=== PATIENT | female | born 1930 | race Caucasian/White ===

== ENCOUNTER → 2017-03-02 | Outpatient (CLI) | payer OTHER ==
[~2017-03-02] MED LIST: AMIO200T PO; ASPI81TA28 PO; CALCIUM + D600 M1 PO; LISI5TAB3 PO; ONDA4TAB7 SL; POLY335025 PO
--- NOTE | 2017-03-02 13:56 | MAMMOGRAPHY REPORT ---
BILATERAL DIGITAL SCREENING MAMMOGRAM WITH CAD: 03/02/2017 CLINICAL HISTORY: Routine screening. Patient has no complaints. TECHNIQUE: Current study was also evaluated with a Computer Aided Detection (CAD) system. Bilateral CC and MLO views were obtained. COMPARISON: Comparison is made to exams dated: 10/19/2015 mammogram, 10/07/2014 mammogram, 09/09/2013 ma mmogram, 09/06/2012 mammogram, 09/14/2011 mammogram, and 09/05/2011 mammogram - [facility]. BREAST COMPOSITION: There are scattered areas of fibroglandular density in both breasts. FINDINGS: No suspicious masses, calcifications, or areas of architectural distortion are noted in ei ther breast. There has been no significant interval change compared to prior exams. IMPRESSION: ACR BI-RADS CATEGORY 1: NEGATIVE There is no mammographic evidence of malignancy. A 1 year screening mammogram is recommended. The pa tient will receive written notification of the results. Approximately 10% of breast cancers are not detected with mammography. A negative mammographic report should not delay biopsy if a clinically suggestive mass is present. Za Arzate M.D. /:03/02/2017 10:32:40 Computing Tutor: Geno CARREON(Hellen)(Ivan)(BD), [facility] letter sent: Normal 1/2 BI-RADS Code: ACR BI-RADS Category 1: Negative
== END | disposition home or self-care (01) ==
LOC: C.MAMM 08:55
PROVIDERS: ATTEND Internal Medicine Critical Care Medicine
DX: Z12.31 Encounter for screening mammogram for malignant neoplasm of breast (principal)

== ENCOUNTER → 2017-07-13 | Outpatient (CLI) | payer OTHER ==
[2017-07-13 10:31] LABS: BLOOD UREA NITROGEN 13 mg/dl (7-18); CALCIUM 8.9 mg/dl (8.5-10.1); CARBON DIOXIDE 30 mmol/L (21-32); CREATININE 0.71 mg/dl (0.60-1.20); GLUCOSE 88 mg/dl (70-99); POTASSIUM 3.9 mmol/L (3.5-5.1); SODIUM 128 mmol/L (136-145)
== END ==
LOC: C.LABVPSUA 09:01
PROVIDERS: ATTEND Internal Medicine Critical Care Medicine
DX: E87.1 Hypo-osmolality and hyponatremia (principal)

== ENCOUNTER → 2017-07-17 | Outpatient (CLI) | payer OTHER ==
[2017-07-17 09:30] LABS: BLOOD UREA NITROGEN 11 mg/dl (7-18); CALCIUM 8.6 mg/dl (8.5-10.1); CARBON DIOXIDE 31 mmol/L (21-32); CREATININE 0.66 mg/dl (0.60-1.20); GLUCOSE 92 mg/dl (70-99); POTASSIUM 4.1 mmol/L (3.5-5.1); SODIUM 127 mmol/L (136-145)
== END ==
LOC: C.LABVPSUA 08:29
PROVIDERS: ATTEND Internal Medicine Critical Care Medicine
DX: E87.1 Hypo-osmolality and hyponatremia (principal)

== ENCOUNTER → 2017-07-21 | Outpatient (CLI) | payer OTHER ==
[2017-07-21 09:40] LABS: BLOOD UREA NITROGEN 12 mg/dl (7-18); CALCIUM 8.8 mg/dl (8.5-10.1); CARBON DIOXIDE 29 mmol/L (21-32); CREATININE 0.71 mg/dl (0.60-1.20); GLUCOSE 113 mg/dl (70-99); SODIUM 129 mmol/L (136-145)
== END ==
LOC: C.LABVPSUA 08:30
PROVIDERS: ATTEND Internal Medicine Critical Care Medicine
DX: N18.3 Chronic kidney disease, stage 3 (moderate) (principal)

== ENCOUNTER → 2017-07-24 | Outpatient (CLI) | payer OTHER ==
[2017-07-24 09:43] LABS: BLOOD UREA NITROGEN 12 mg/dl (7-18); CALCIUM 8.7 mg/dl (8.5-10.1); CARBON DIOXIDE 29 mmol/L (21-32); CREATININE 0.59 mg/dl (0.60-1.20); GLUCOSE 85 mg/dl (70-99); POTASSIUM 4.1 mmol/L (3.5-5.1); SODIUM 131 mmol/L (136-145)
== END | disposition home or self-care (01) ==
LOC: C.LABVPSUA 08:52
PROVIDERS: ATTEND Internal Medicine Critical Care Medicine
DX: E87.0 Hyperosmolality and hypernatremia (principal)

== ENCOUNTER → 2017-08-01 | Outpatient (CLI) | payer OTHER ==
[2017-08-01 09:48] LABS: BASO % 0.5 %; BASO ABS # 0.04 K/uL (0-0.2); EOS ABS # 0.25 K/uL (0-0.5); HEMATOCRIT 34.2 % (37-47); HEMOGLOBIN 11.6 g/dL (12.0-16.0); IG# 0.03 K/uL (0.00-0.02); LYMPH ABS # 1.84 K/uL (1.2-3.4); MEAN CELL VOLUME 88.6 fL (80-100); MEAN CORPUSCULAR HEMOGLOBIN 30.1 pg (25-34); MEAN CORPUSCULAR HGB CONC 33.9 g/dl (32-36); MONO ABS # 0.84 K/uL (0.11-0.59); NEUT % 64.1 %; NEUT ABS # 5.36 K/uL (1.4-6.5); PLATELET COUNT 334 K/uL (130-400); RED CELL DISTRIBUTION WIDTH CV 14.8 % (11.5-14.5); RED CELL DISTRIBUTION WIDTH SD 47.7 fL (36.4-46.3); WHITE BLOOD COUNT 8.36 K/uL (4.8-10.8)
[2017-08-01 10:05] LABS: BLOOD UREA NITROGEN 14 mg/dl (7-18); CALCIUM 8.7 mg/dl (8.5-10.1); CARBON DIOXIDE 30 mmol/L (21-32); CREATININE 0.76 mg/dl (0.60-1.20); GLUCOSE 96 mg/dl (70-99); POTASSIUM 3.2 mmol/L (3.5-5.1); SODIUM 133 mmol/L (136-145)
== END | disposition home or self-care (01) ==
LOC: C.LABVPSUA 09:09
PROVIDERS: ATTEND Internal Medicine Critical Care Medicine
DX: E87.1 Hypo-osmolality and hyponatremia (principal); R11.2 Nausea with vomiting, unspecified

== ENCOUNTER 2017-08-21 15:33 | Emergency (ER) | payer OTHER ==
[~2017-08-21] VITALS: Ht 162.6 cm; Wt 59.7 kg
[2017-08-21 15:40] VITALS: TEMP 36.4; Ht 162.6 cm; Wt 59.7 kg
[2017-08-21 16:21] LABS: BASO ABS # 0.09 K/uL (0-0.2); EOS % 2.8 %; EOS ABS # 0.25 K/uL (0-0.5); HEMATOCRIT 35.2 % (37-47); HEMOGLOBIN 12.1 g/dL (12.0-16.0); IG# 0.03 K/uL (0.00-0.02); LYMPH % 25.5 %; LYMPH ABS # 2.31 K/uL (1.2-3.4); MEAN CELL VOLUME 86.3 fL (80-100); MEAN CORPUSCULAR HEMOGLOBIN 29.7 pg (25-34); MEAN CORPUSCULAR HGB CONC 34.4 g/dl (32-36); MEAN PLATELET VOLUME 8.6 fL (7.4-10.4); MONO % 12.6 %; MONO ABS # 1.14 K/uL (0.11-0.59); NEUT % 57.8 %; NEUT ABS # 5.25 K/uL (1.4-6.5); PLATELET COUNT 335 K/uL (130-400); RED CELL DISTRIBUTION WIDTH CV 14.9 % (11.5-14.5); RED CELL DISTRIBUTION WIDTH SD 46.9 fL (36.4-46.3); WHITE BLOOD COUNT 9.07 K/uL (4.8-10.8)
[2017-08-21] MEDS ORDERED: AMLO2.5T PO (16:30)
[2017-08-21] MEDS ORDERED: LEVO25TA5 PO (16:30)
[2017-08-21] MEDS ORDERED: SODI1GRA11 PO (16:30)
[2017-08-21] MEDS ORDERED: FURO-85 PO (16:30)
[2017-08-21] MEDS ORDERED: AMIO200T4 PO (16:30)
[2017-08-21] MEDS ORDERED: ULT50 PO (16:30)
[2017-08-21] MEDS ORDERED: POTA10CA28 PO (16:30)
[2017-08-21] MEDS ORDERED: LSN20 PO (16:30)
[2017-08-21 16:37] LABS: ALBUMIN 3.1 gm/dl (3.4-5.0); CALCIUM 8.8 mg/dl (8.5-10.1); CREATININE 1.04 mg/dl (0.60-1.20); POTASSIUM 4.2 mmol/L (3.5-5.1)
[2017-08-21 16:40] LABS: TOTAL PROTEIN 7.4 gm/dl (6.4-8.2)
--- NOTE | 2017-08-21 17:24 | DIAGNOSTIC IMAGING REPORT ---
PELVIS 1 OR 2 VIEW ROUTINE CLINICAL HISTORY: R leg pain pain. Trauma. COMPARISON: 09/05/2009 DISCUSSION: Comminuted fracture medial aspect left pubic ring. Fracture medial aspect right pubic ring. No additional well-defined acute bony abnormality on this single projection. There is no evidence for soft tissue swelling. IMPRESSION: 1. Comminuted fracture medial left pubic ring. 2. Fracture right pubic ring medially. The above report was generated using voice recognition software. It may contain grammatical, syntax or spelling errors. Electronically signed by: Kit Ryder M.D. 08/21/2017 5:22 PM Dictated Date/Time: 08/21/2017 5:21 PM
--- NOTE | 2017-08-21 17:26 | DIAGNOSTIC IMAGING REPORT ---
R FEMUR 2 VIEWS ROUTINE CLINICAL HISTORY: r leg pain COMPARISON: None. DISCUSSION: The bones and joint spaces appear intact. There is no evidence of fracture, dislocation or bony disease. Slight cortical step-off lateral aspect AP projection right hip overlying the right anterior acetabular line. This felt to be artifactual. IMPRESSION: No acute process. The above report was generated using voice recognition software. It may contain grammatical, syntax or spelling errors. Electronically signed by: Kit Ryder M.D. 08/21/2017 5:24 PM Dictated Date/Time: 08/21/2017 5:22 PM
[2017-08-21] MEDS ORDERED: OPTIRAY 320 IV PRN (18:45)
--- NOTE | 2017-08-21 20:01 | DIAGNOSTIC IMAGING REPORT ---
PELVIS W/IV CONT ONLY (CT) HISTORY: 87 years-old Female presents with acute generalized pelvic pain COMPARISON: CT abdomen and pelvis 11/20/2012, pelvic radiographs 08/21/2017 TECHNIQUE: Multiple axial CT images of the pelvis were obtained following the intravenous administration of 116 mL Optiray 320 IV contrast. A dose lowering technique was used consistent with the principals of HOSSEIN. FINDINGS: Moderate atherosclerosis of the distal abdominal aorta and iliac vasculature. No pathologic adenopathy by CT size criteria. IVC appears patent. Moderate stool volume is seen throughout the colon suggesting constipation. No dilated small bowel loops identified. No pneumoperitoneum or pneumatosis. Air-filled nondilated loops of small bowel likely physiologic. Mild urinary bladder distention. Uterus appears age-appropriate. No adnexal mass lesions identified. The bones appear to be moderately demineralized. Healing subacute appearing comminuted mildly impacted fracture of the superior left pubic ramus with mild surrounding soft tissue swelling and healing periosteal callus formation is noted on image 178 series 3. Healing subacute displaced fracture involves the inferior left pubic ramus with apposition of fracture fragments of 12 mm. Fracture displaced anterolaterally 12 mm. Acute nondisplaced fracture involves the right superior pubic ramus as well. Subacute appearing nondisplaced fracture of the posterior left iliac wing adjacent to the SI joint is nicely seen on image 43 series 3. Subacute appearing bilateral sacral insufficiency fractures. Bilateral proximal femora appear intact. Moderate degenerative changes of the bilateral femoral acetabular joints. Moderate edema of the bilateral abductor musculature. IMPRESSION: 1. Multiple bilateral subacute appearing pelvic fractures including comminuted displaced left superior pubic ramus fracture and subacute displaced inferior left pubic ramus fracture. Acute to subacute appearing nondisplaced fractures of the right superior and inferior pubic rami. 2. Subacute appearing nondisplaced bilateral sacral insufficiency and left posterior iliac fractures. 3. Bilateral proximal femora appear intact. 4. Reactive soft tissue swelling of the abductor musculature. The above report was generated using voice recognition software. It may contain grammatical, syntax or spelling errors. Electronically signed by: Kaleb Grider M.D. 08/21/2017 8:00 PM Dictated Date/Time: 08/21/2017 7:48 PM
[2017-08-21] MEDS ORDERED: OXYCODONE IR HOME PACK PO ONE (21:00)
[2017-08-21 21:12] VITALS: BP 138/41; PULSE 61; O2SAT 95
--- NOTE | 2017-08-21 22:26 | EMERGENCY ROOM VISIT NOTE ---
History Report prepared by Lois: Tian Ocasio Under the Supervision of: Dr. Satish Sutton D.O. First contact with patient: 15:47 Chief Complaint: LEG PAIN,LEG INJURY Stated Complaint: LEG PAIN History of Present Illness The patient is an 87 year old female who presents to the Emergency Room with complaints of worsening sharp right leg pain for the past week and a half. Per the patient's daughter, the patient broke her left pelvis in June, and she has been doing well in rehab since then until now. The patient was seen at the orthopedist, and they could not find anything on x-ray, and they sent her to pain management. She got a steroid shot in her SI joint, and it did not help the pain. The patient notes that the pain is worse with movement and walking on it. The patient state that the pain started in the back, though it moved into the leg, and she has no more back pain. She is currently taking tramadol for the pain, and it does not really help. Pt denies difficulty urinating and with bowel movements, headache, change in vision, fevers, chest pain, shortness of breath, nausea, vomiting, diarrhea, pain with urination, and melena. Source of History: patient Onset: week and a half Position: leg (right) Quality: sharp Timing: worsening Associated Symptoms: No back pain Review of Systems See HPI for pertinent positives & negatives. A total of 10 systems reviewed and were otherwise negative. Past Medical & Surgical Medical Problems: (1) HTN (hypertension) Social History Smoking Status: Never Smoker Alcohol Use: none Drug Use: none Marital Status: Housing Status: lives with family Occupation Status: retired Current/Historical Medications Scheduled Amiodarone Hcl (Cordarone), 200 MG PO DAILY Amlodipine (Norvasc), 2.5 MG PO DAILY Furosemide (Lasix), 20 MG PO DAILY Levothyroxine Sodium (Levothyroxine Sodium), 25 MCG PO DAILY Lisinopril (Lisinopril), 20 MG PO DAILY Potassium Chloride (Micro-K Ext Rel), 10 MEQ PO DAILY Sodium Chloride (Sodium Chloride), 1 GM PO BID Scheduled PRN Tramadol HCl (Tramadol HCl), 50 MG PO Q6 PRN for Pain Allergies Coded Allergies: No Known Allergies (Verified , 08/21/17) Physical Exam Vital Signs Date Time Temp Pulse Resp B/P (MAP) Pulse Ox O2 Delivery O2 Flow Rate FiO2 08/21/17 21:12 61 138/41 95 08/21/17 19:59 58 131/58 96 Room Air 08/21/17 18:06 56 129/58 95 Room Air 08/21/17 15:40 36.4 77 175/87 96 Room Air Physical Exam GENERAL: Sitting up in bed, chronically ill appearing, malnourished. EYE EXAM: normal conjunctiva. OROPHARYNX: no exudate, no erythema, lips, buccal mucosa, and tongue normal and mucous membranes are moist NECK: supple, no nuchal rigidity, no adenopathy, non-tender LUNGS: Clear to auscultation. Normal chest wall mechanics HEART: no murmurs, S1 normal and S2 normal ABDOMEN: abdomen soft, non-tender, normo-active bowel sounds, no masses, no rebound or guarding. BACK: Back is symmetrical on inspection and there is no deformity, no midline tenderness, no CVA tenderness. SKIN: no rashes and no bruising UPPER EXTREMITIES: upper extremities are grossly normal. LOWER EXTREMITIES: 2 areas of erythema in the right groin. Tenderness to palpation to the right proximal femur/pelvis tracking distally along the medial portion. Flexion extension of the hip, knee, ankle, and EHL are 5/5 bilaterally with significant pain with movement of hip in the right. NEURO EXAM: Normal sensorium, cranial nerves II-XII grossly intact, normal speech, no gross weakness of arms, no gross weakness of legs. Medical Decision & Procedures ER Provider Diagnostic Interpretation: Radiology results as stated below per my review and the radiologist's interpretation: PELVIS 1 OR 2 VIEW ROUTINE CLINICAL HISTORY: R leg pain pain. Trauma. COMPARISON: 09/05/2009 DISCUSSION: Comminuted fracture medial aspect left pubic ring. Fracture medial aspect right pubic ring. No additional well-defined acute bony abnormality on this single projection. There is no evidence for soft tissue swelling. IMPRESSION: 1. Comminuted fracture medial left pubic ring. 2. Fracture right pubic ring medially. The above report was generated using voice recognition software. It may contain grammatical, syntax or spelling errors. Electronically signed by: Kit Ryder M.D. 08/21/2017 5:22 PM Dictated Date/Time: 08/21/2017 5:21 PM R FEMUR 2 VIEWS ROUTINE CLINICAL HISTORY: r leg pain COMPARISON: None. DISCUSSION: The bones and joint spaces appear intact. There is no evidence of fracture, dislocation or bony disease. Slight cortical step-off lateral aspect AP projection right hip overlying the right anterior acetabular line. This felt to be artifactual. IMPRESSION: No acute process. The above report was generated using voice recognition software. It may contain grammatical, syntax or spelling errors. Electronically signed by: Kit Ryder M.D. 08/21/2017 5:24 PM Dictated Date/Time: 08/21/2017 5:22 PM PELVIS W/IV CONT ONLY (CT) HISTORY: 87 years-old Female presents with acute generalized pelvic pain COMPARISON: CT abdomen and pelvis 11/20/2012, pelvic radiographs 08/21/2017 TECHNIQUE: Multiple axial CT images of the pelvis were obtained following the intravenous administration of 116 mL Optiray 320 IV contrast. A dose lowering technique was used consistent with the principals of HOSSEIN. FINDINGS: Moderate atherosclerosis of the distal abdominal aorta and iliac vasculature. No pathologic adenopathy by CT size criteria. IVC appears patent. Moderate stool volume is seen throughout the colon suggesting constipation. No dilated small bowel loops identified. No pneumoperitoneum or pneumatosis. Air-filled nondilated loops of small bowel likely physiologic. Mild urinary bladder distention. Uterus appears age-appropriate. No adnexal mass lesions identified. The bones appear to be moderately demineralized. Healing subacute appearing comminuted mildly impacted fracture of the superior left pubic ramus with mild surrounding soft tissue swelling and healing periosteal callus formation is noted on image 178 series 3. Healing subacute displaced fracture involves the inferior left pubic ramus with apposition of fracture fragments of 12 mm. Fracture displaced anterolaterally 12 mm. Acute nondisplaced fracture involves the right superior pubic ramus as well. Subacute appearing nondisplaced fracture of the posterior left iliac wing adjacent to the SI joint is nicely seen on image 43 series 3. Subacute appearing bilateral sacral insufficiency fractures. Bilateral proximal femora appear intact. Moderate degenerative changes of the bilateral femoral acetabular joints. Moderate edema of the bilateral abductor musculature. IMPRESSION: 1. Multiple bilateral subacute appearing pelvic fractures including comminuted displaced left superior pubic ramus fracture and subacute displaced inferior left pubic ramus fracture. Acute to subacute appearing nondisplaced fractures of the right superior and inferior pubic rami. 2. Subacute appearing nondisplaced bilateral sacral insufficiency and left posterior iliac fractures. 3. Bilateral proximal femora appear intact. 4. Reactive soft tissue swelling of the abductor musculature. The above report was generated using voice recognition software. It may contain grammatical, syntax or spelling errors. Electronically signed by: Kaleb Grider M.D. 08/21/2017 8:00 PM Dictated Date/Time: 08/21/2017 7:48 PM Laboratory Results 08/21/17 16:15 Red Blood Count 4.08, Mean Corpuscular Volume 86.3, Mean Corpuscular Hemoglobin 29.7, Mean Corpuscular Hemoglobin Concent 34.4, Mean Platelet Volume 8.6, Neutrophils (%) (Auto) 57.8, Lymphocytes (%) (Auto) 25.5, Monocytes (%) (Auto) 12.6, Eosinophils (%) (Auto) 2.8, Basophils (%) (Auto) 1.0, Neutrophils # (Auto ) 5.25, Lymphocytes # (Auto) 2.31, Monocytes # (Auto) 1.14, Eosinophils # (Auto ) 0.25, Basophils # (Auto) 0.09 08/21/17 16:15 Test 08/21/17 16:15 White Blood Count 9.07 K/uL (4.8-10.8) Red Blood Count 4.08 M/uL (4.2-5.4) Hemoglobin 12.1 g/dL (12.0-16.0) Hematocrit 35.2 % (37-47) Mean Corpuscular Volume 86.3 fL (80-100) Mean Corpuscular Hemoglobin 29.7 pg (25-34) Mean Corpuscular Hemoglobin Concent 34.4 g/dl (32-36) Platelet Count 335 K/uL (130-400) Mean Platelet Volume 8.6 fL (7.4-10.4) Neutrophils (%) (Auto) 57.8 % Lymphocytes (%) (Auto) 25.5 % Monocytes (%) (Auto) 12.6 % Eosinophils (%) (Auto) 2.8 % Basophils (%) (Auto) 1.0 % Neutrophils # (Auto) 5.25 K/uL (1.4-6.5) Lymphocytes # (Auto) 2.31 K/uL (1.2-3.4) Monocytes # (Auto) 1.14 K/uL (0.11-0.59) Eosinophils # (Auto) 0.25 K/uL (0-0.5) Basophils # (Auto) 0.09 K/uL (0-0.2) RDW Standard Deviation 46.9 fL (36.4-46.3) RDW Coefficient of Variation 14.9 % (11.5-14.5) Immature Granulocyte % (Auto) 0.3 % Immature Granulocyte # (Auto) 0.03 K/uL (0.00-0.02) Anion Gap 7.0 mmol/L (3-11) Est Creatinine Clear Calc Drug Dose 32.9 ml/min Estimated GFR () 55.9 Estimated GFR (Non- 48.3 BUN/Creatinine Ratio 17.6 (10-20) Calcium Level 8.8 mg/dl (8.5-10.1) Total Bilirubin 0.4 mg/dl (0.2-1) Direct Bilirubin 0.2 mg/dl (0-0.2) Aspartate Amino Transf (AST/SGOT) 17 U/L (15-37) Alanine Aminotransferase (ALT/SGPT) 16 U/L (12-78) Alkaline Phosphatase 150 U/L (45-117) Total Protein 7.4 gm/dl (6.4-8.2) Albumin 3.1 gm/dl (3.4-5.0) Lipase 147 U/L (73-393) Laboratory results per my review. Medications Administered Medications (Trade) Dose Ordered Sig/Jeramy Route Start Time Stop Time Status Last Admin Dose Admin Oxycodone HCl (Roxicodone Immediate Rel 5MG Home Pack) 1 homepack UD ONCE PO 08/21/17 21:00 08/21/17 21:01 DC 08/21/17 21:01 1 HOMEPACK ED Course ED COURSE: Vital signs were reviewed and showed situational hypertension The patients medical record was reviewed The above diagnostic studies were performed and reviewed. ED treatments and interventions as stated above. 1547: The patient was evaluated in room A11. A complete history and physical examination was performed. 1655: I reevaluated the patient, and she was doing well. 1833: I discussed the patient's case with Dr. Callejas - Orthopedics, and he is going review the patient's old imaging. 1840: I reevaluated the patient, and I updated her on the plan. She will be getting a CT scan. 1851: Dr. Callejas called back and is unable to differentiate old and new based off the previous imaging. He thinks that if there is no involvement of the sacrum, then the patient can follow up as an outpatient. 2020: I talked with Dr. Callejas - Orthopedics again, and he states that the patient can go home and weight-bear as tolerated with a walker, and they will see the patient in a week. 2050: Upon reevaluation, the patient is doing well.I discussed my findings with the patient and she understands and agrees with the treatment plan. Based on the patients age, coexisting illnesses, exam and lab findings the decision to treat as an outpatient was made. The patient remained stable while under my care. The patient appeared well at the time of discharge. 2100: Oxycodone 5mg Home Pack PO Medical Decision Differential diagnosis: Etiologies such as fracture, dislocation, neurovascular compromise, compartment syndrome, soft tissue injury, as well as others were entertained. Patient is an 87-year-old female who presents to ER for right groin/proximal femur pain. She notes this is been going on for the past 1.5 weeks. No recent trauma. He notes she has a previous history of left pelvic fracture secondary to trauma back in 2016. She is followed up at [facility]. She follows with [facility] [place] and has been seeing them intermittently. She last saw them when his pain initially started. She notes that obtain x-rays were unremarkable. CBC all BMP, LFTs, bilirubin lipase is unremarkable. X-rays of her pelvis show a left pelvic fracture which I assume is old but was unable to compare to anything along with a right pubic ring fracture. Per report this appears to be new. I did discuss with the on-call [facility] physician. I asked him to review their x-rays but is unable to get into them. We elected to CT the pelvis. She does have some sacral fractures. He reviewed all the imaging. He believes these are old. He does believe the right pubic fracture is new within the past 4 weeks. I updated the family regards to this. They requested to go home. [place] [facility] [place] [facility] [place] to [facility] for assistance. She does use a walker and I encouraged her to use this for orthosis recommendations. They did recommend weightbearing as tolerated. Patient was discharged with OxyIR. She'll follow up with orthopedics within 1 week. Daughter was updated bedside. Discussed with Pt concerning signs and symptoms to watch out for. Pt was instructed to follow up with their PCP and discussed with the patient their option to return to the ED at anytime for persistent or worsening symptoms. The appropriate anticipatory guidance and out- patient management, including indications for return to the emergency department , were explained at length to the patient and understood. [place] Drug Monitoring Program Search Results: patient reviewed within database, no issues identified Medication Reconcilliation Current Medication List: was personally reviewed by me Blood Pressure Screening Patient's blood pressure: Elevated blood pressure Blood pressure disposition: Elevated BP felt to be situational Consults Time Called: 2008 Consulting Physician: Dr. Musa [facility]arr[facility] Returned Call: 2020 I discussed the patient's case with Dr. Britta Napier, and he is going review the patient's old imaging. I talked with Dr. Britta Napier again, and he states that the patient can go home and weight-bear as tolerated with a walker, and they will see the patient in a week. Impression Primary Impression: Pelvic fracture Scribe Attestation The scribe's documentation has been prepared under my direction and personally reviewed by me in its entirety. I confirm that the note above accurately reflects all work, treatment, procedures, and medical decision making performed by me. Departure Information Dispostion Home / Self-Care Referrals [facility] (PCP) Forms HOME CARE DOCUMENTATION FORM, IMPORTANT VISIT INFORMATION Patient Instructions ED Fx Pelvis, My [facility] Additional Instructions Please follow up with your primary care doctor with in the next 24 hours. Any worsening of your symptoms, please return to the ED immediately. This includes any fevers greater than 100.4, worsening pain, chest pain, shortness breath, persistent nausea, vomiting, unable to eat or drink, or any other concerning signs or symptoms from your standpoint. Please ambulate with a walker and weight-bear as tolerated. You were given medications during this visit that will inhibit your ability to drive, operate machinery and work. Please do NOT drive, operate machinery or work for the next 12hrs. You were also given a prescription for a narcotic. While taking this medication you should also not drive, operate machinery and or work. Please do not take tramadol/Ultram in combination with OxyIR. Please follow up with [facility] within the next 5 days. Problem Qualifiers Primary Impression: Pelvic fracture Encounter type: initial encounter Pelvic bone location: pubis Sublocation of pubis: unspecified portion of pubis Fracture type: closed Laterality: unspecified laterality Qualified Codes: S32.509A - Unspecified fracture of unspecified pubis, initial encounter for closed fracture
== END 2017-08-21 21:14 | disposition home or self-care (01) ==
LOC: EDBD 15:33 → C.EDA 15:35
DX: S32.591A Other specified fracture of right pubis, initial encounter for closed fracture (principal); S32.592A Other specified fracture of left pubis, initial encounter for closed fracture; X58.XXXA Exposure to other specified factors, initial encounter; I10 Essential (primary) hypertension

== ENCOUNTER → 2017-08-25 | Outpatient (CLI) | payer OTHER ==
[~2017-08-25] MED LIST changes: -AMIO200T PO; +AMIO200T4 PO; +AMLO2.5T PO; -ASPI81TA28 PO; -CALCIUM + D600 M1 PO; +FURO-85 PO; +LEVO25TA5 PO; -LISI5TAB3 PO; +LSN20 PO; -ONDA4TAB7 SL; -POLY335025 PO; +POTA10CA28 PO; +SODI1GRA11 PO; +ULT50 PO
[2017-08-25 09:04] LABS: BASO % 1.2 %; BASO ABS # 0.09 K/uL (0-0.2); EOS % 6.1 %; EOS ABS # 0.45 K/uL (0-0.5); HEMATOCRIT 35.8 % (37-47); HEMOGLOBIN 11.8 g/dL (12.0-16.0); IG# 0.01 K/uL (0.00-0.02); LYMPH % 27.1 %; MEAN CELL VOLUME 87.3 fL (80-100); MEAN CORPUSCULAR HEMOGLOBIN 28.8 pg (25-34); MEAN PLATELET VOLUME 8.9 fL (7.4-10.4); MONO % 11.4 %; MONO ABS # 0.84 K/uL (0.11-0.59); NEUT % 54.1 %; NEUT ABS # 3.99 K/uL (1.4-6.5); PLATELET COUNT 343 K/uL (130-400); RED CELL DISTRIBUTION WIDTH CV 14.8 % (11.5-14.5); RED CELL DISTRIBUTION WIDTH SD 47.5 fL (36.4-46.3); WHITE BLOOD COUNT 7.38 K/uL (4.8-10.8)
== END ==
LOC: C.LABVPSUA 08:47
PROVIDERS: ATTEND Internal Medicine Critical Care Medicine
DX: E87.1 Hypo-osmolality and hyponatremia (principal)

== ENCOUNTER → 2017-09-04 | Outpatient (CLI) | payer OTHER ==
[2017-09-04 09:07] LABS: BASO % 1.4 %; EOS % 9.9 %; EOS ABS # 0.72 K/uL (0-0.5); HEMATOCRIT 35.4 % (37-47); HEMOGLOBIN 11.8 g/dL (12.0-16.0); IG# 0.02 K/uL (0.00-0.02); LYMPH % 34.1 %; LYMPH ABS # 2.49 K/uL (1.2-3.4); MEAN CORPUSCULAR HGB CONC 33.3 g/dl (32-36); MONO % 13.2 %; MONO ABS # 0.96 K/uL (0.11-0.59); NEUT % 41.1 %; NEUT ABS # 3.01 K/uL (1.4-6.5); PLATELET COUNT 378 K/uL (130-400); RED CELL DISTRIBUTION WIDTH CV 14.8 % (11.5-14.5); RED CELL DISTRIBUTION WIDTH SD 47.4 fL (36.4-46.3)
[2017-09-04 09:16] LABS: BLOOD UREA NITROGEN 18 mg/dl (7-18); CALCIUM 8.5 mg/dl (8.5-10.1); CARBON DIOXIDE 30 mmol/L (21-32); CREATININE 0.73 mg/dl (0.60-1.20); GLUCOSE 81 mg/dl (70-99); POTASSIUM 3.8 mmol/L (3.5-5.1); SODIUM 129 mmol/L (136-145)
== END ==
LOC: C.LABVPSUA 08:31
PROVIDERS: ATTEND Internal Medicine Critical Care Medicine
DX: N18.3 Chronic kidney disease, stage 3 (moderate) (principal)

== ENCOUNTER → 2017-09-15 | Outpatient (CLI) | payer OTHER ==
[2017-09-15 09:09] LABS: BLOOD UREA NITROGEN 11 mg/dl (7-18); CALCIUM 8.6 mg/dl (8.5-10.1); CARBON DIOXIDE 30 mmol/L (21-32); CREATININE 0.93 mg/dl (0.60-1.20); GLUCOSE 84 mg/dl (70-99); POTASSIUM 3.7 mmol/L (3.5-5.1); SODIUM 130 mmol/L (136-145)
== END | disposition home or self-care (01) ==
LOC: C.LABVPSUA 08:42 → EDSTATUS 10-16 10:24
PROVIDERS: ATTEND Nurse Practitioner
DX: E87.1 Hypo-osmolality and hyponatremia (principal)

== ENCOUNTER 2019-08-16 03:33 | Inpatient (IN) ==
[2019-08-16] MEDS ORDERED: ACETAMINOPHEN 1,000 MG/100 ML VIAL IV STA (03:42)
[2019-08-16 04:11] LABS: Basophils # (auto) 0.05 K/uL (0-0.2); Basophils % (auto) 0.3 %; Eosinophils # (auto) 0.13 K/uL (0-0.5); Eosinophils % (auto) 0.7 %; Hematocrit (blood only) 40.1 % (37-47); Hemoglobin 13.7 g/dL (12.0-16.0); Immature Granulocytes # (auto) 0.09 K/uL (0.00-0.02); Immature Granulocytes % (auto) 0.5 %; Lymphocytes # (auto) 1.74 K/uL (1.2-3.4); Lymphocytes % (auto) 9.9 %; Mean Corpuscular Hemoglobin 30.3 pg (25-34); Mean Corpuscular Hgb Conc 34.2 g/dL (32-36); Mean Corpuscular Volume 88.7 fL (80-100); Mean Platelet Volume 9.3 fL (7.4-10.4); Monocytes # (auto) 1.26 K/uL (0.11-0.59); Monocytes % (auto) 7.2 %; Neutrophils % (auto) 81.4 %; Platelet Count 271 K/uL (130-400); RDW Coefficient of Variation 15.2 % (11.5-14.5); RDW Standard Deviation 49.3 fL (36.4-46.3); Red Blood Count 4.52 M/uL (4.2-5.4); White Blood Count 17.57 K/uL (4.8-10.8)
[2019-08-16] MEDS ORDERED: ONDANSETRON INJ 2 MG/ML 2 ML VIAL IV STA (04:13)
[2019-08-16 04:36] LABS: Albumin Level 3.5 gm/dl (3.4-5.0); BUN Creatinine Ratio 19.8 (10-20); Calcium 9.1 mg/dl (8.5-10.1); Creatinine Clr Calc Pharmacy 33.6 ml/min; Est GFR (African American) 57.8; Est GFR (Non-African American) 49.9; Potassium 3.7 mmol/L (3.5-5.1)
[2019-08-16 04:48] LABS: Albumin Globulin Ratio 0.7 (0.9-2); Bilirubin,Total 0.4 mg/dl (0.2-1); Globulin 4.9 gm/dl (2.5-4.0); Thyroid Stimulating Hormone 9.64 uIu/ml (0.300-4.500); Total Protein 8.4 gm/dl (6.4-8.2)
[2019-08-16 05:03] LABS: T4 Free Thyroxine 1.58 ng/dl (0.8-1.6)
[2019-08-16] MEDS ORDERED: IOVERSOL 100ml IV PRN (05:46)
--- NOTE | 2019-08-16 06:40 | CT Scan Report ---
CT OF THE ABDOMEN AND PELVIS WITH CONTRAST CLINICAL HISTORY: Abdominal pain following fall. COMPARISON STUDY: CT of the abdomen and pelvis November 20, 2012. CT of the pelvis August 21, 2017. TECHNIQUE: Following IV administration of 119 mL of Optiray-320, axial images of the abdomen and pelv is were obtained from the lung bases to the proximal femurs. Images were reviewed in the axial, sagit omar, and coronal planes. IV contrast was administered without complication. Automated exposure contr ol was utilized for the study. A dose lowering technique was utilized adhering to the principles of ALARA. FINDINGS: Visualized portions of the chest demonstrate numerous pulmonary nodules within the bilatera l lower lobes, including a 1.4 cm nodule within the medial basilar segment of the right lower lobe on image 36 of 386. These are new since CT of November 20, 2012. No pneumatosis, free air or portal venous g as is present. The liver, spleen, adrenal glands and pancreas are unremarkable. There is borderline b iliary ductal dilatation. There is no peripancreatic or pericholecystic infiltration. The majority of the small bowel is mildly dilated and fluid-filled. Probable transition point is noted within the up per pelvis on axial image 219 of 186. Distal small bowel is decompressed. There is a small amount of associated ascites. Moderate amount stool within the colon is noted. There is no lymphadenopathy. No suspicious osseous lesions are noted. There are old bilateral rib fractures and old bilateral sacral ala fractures. T12 vertebroplasty is noted. IMPRESSION: 1. Findings suggestive of a moderate grade small bowel obstruction, as described above. Transition po int within the upper pelvis, as described above. Small amount of associated ascites. Mildly distended , fluid-filled stomach. No pneumatosis, free air or portal venous gas. 2. Numerous nodules within the bilateral lower lobes. These are indeterminate and metastatic disease cannot be excluded. A follow-up chest CT is recommended. 3. No acute traumatic findings within the abdomen or pelvis. ACT 112: Negative or not required by law. Electronically signed by: James Mccord M.D. 08/16/2019 6:39 AM
--- NOTE | 2019-08-16 06:44 | CT Scan Report ---
CT OF THE LUMBAR SPINE CLINICAL HISTORY: Fall. Back pain. COMPARISON STUDY: CT of the lumbar spine September 05, 2009. TECHNIQUE: Helical axial images of the lumbar spine were obtained. Sagittal and coronal reconstruct ions were viewed. Automated exposure control was utilized for the study. A dose lowering technique was utilized adhering to the principles of ALARA. FINDINGS: Please note that the CT of the abdomen and pelvis will be reported separately. This is stat us post T12 vertebroplasty. There is mild S-shaped scoliosis of the lumbar spine. Vertebral body heig hts are maintained. No acute lumbar spine fracture. There is severe multilevel disc space narrowing w ith vacuum disc phenomenon and osteophytosis within the lumbar spine. Old bilateral sacral ala fractu res are noted. There is no suspicious osseous lesion within the lumbar spine. Central canal neural fo ramen are suboptimally assessed by CT. IMPRESSION: 1. No acute lumbar spine fracture or subluxation. 2. Old severe T12 compression fracture status post vertebroplasty. 3. Severe multilevel degenerative changes within the lumbar spine. S-shaped scoliosis. 4. Old bilateral sacral ala fractures. ACT 112: Negative or not required by law. Electronically signed by: James Mccord M.D. 08/16/2019 6:42 AM
--- NOTE | 2019-08-16 06:58 | CT Scan Report ---
CT head/brain wo con CLINICAL HISTORY: 89 years-old Female with Pt c/o emesis, fall. Acute head injury status post fall TECHNIQUE: Multiple axial CT images of the head were obtained without contrast. A dose lowering tech nique was utilized adhering to the principles of ALARA. CT DOSE: 1542.41 mGy.cm COMPARISON: CT cervical spine of same day, CT head 11/20/2012 FINDINGS: No acute intracranial hemorrhage, midline shift, intracranial mass, hydrocephalus, territorial ischem ia or abnormal extra-axial collection. Age-related involutional changes with ex vacuo ventriculomegal y. Patchy white matter hypodensities suggest chronic microvascular ischemic disease. Cerebral vascula r calcifications also noted. The calvarium is intact. Prior bilateral lens replacement. The paranasal sinuses, mastoid air cells, and middle ear cavities are clear. IMPRESSION: No acute intracranial abnormality or calvarial fracture. ACT 112: Negative or not required by law. The above report was generated using voice recognition software. It may contain grammatical, syntax o r spelling errors. Electronically signed by: Kaleb Grider M.D. 08/16/2019 6:56 AM
--- NOTE | 2019-08-16 07:02 | XRay Report ---
XR chest 1V portable CLINICAL HISTORY: weakness COMPARISON STUDY: Chest radiograph November 22, 2012. FINDINGS: Mild cardiomegaly is noted old nonunited distal right clavicular fracture is noted.. There is no evidence for pulmonary edema. There is no pneumothorax or pleural effusion. There are mild biba silar opacities. T12 vertebroplasty is noted. IMPRESSION: 1. No pneumothorax. 2. Mild bibasilar opacities. ACT 112: Negative or not required by law. Electronically signed by: James Mccord M.D. 08/16/2019 7:01 AM
--- NOTE | 2019-08-16 07:16 | CT Scan Report ---
CERVICAL SPINE CT CT DOSE: HISTORY: Neck pain. Pt c/o fall, back pain TECHNIQUE: Multiaxial CT images of the cervical spine were performed and reformatted in the sagittal and coronal plane without the use of contrast. A dose lowering technique was utilized adhering to e principles of ALARA. COMPARISON: None. FINDINGS: No fractures. No subluxation. Prevertebral soft tissues and the C1-C2 interval are intact. No pneumothorax. Moderate to severe degenerative changes throughout the majority of the cervical spin e. IMPRESSION: No fractures within the cervical spine. ACT 112: Negative or not required by law. Electronically signed by: Charles Florez M.D. 08/16/2019 7:15 AM
--- NOTE | 2019-08-16 07:18 | CT Scan Report ---
CT thoracic spine wo con HISTORY: 89 years-old Female Pt c/o fall back pain acute low back pain with vomiting COMPARISON: CT lumbar spine of same day, CT abdomen and pelvis 11/20/2012 thoracic spine fluoroscopic images 09/07/2009 TECHNIQUE: Multiple axial CT images of the thoracic spine were obtained without the use of IV contras t. Coronal and sagittal reformatted images were obtained from the axial data set and were submitted f or review. A dose lowering technique was used consistent with the principals of ALA. FINDINGS: Demineralized appearance of the bones. Mostly mild multilevel disc space narrowing with mild to moder ate spondylitic spurring at least moderate multilevel facet arthrosis. Chondrocalcinosis of the T8-T9 disc space. Remote T12 burst fracture with kyphoplasty changes. 5 mm retropulsion is also unchanged resulting in mild central canal stenosis at T11-T12. Mild superior endplate compression of approximat morgan 25% at T9 appears chronic. Age-indeterminate 20% superior endplate compression deformity at T5. There is are acute superior and inferior endplate compression deformities involving the T10 vertebral body with less than 20% vertebr al body height loss. No significant retropulsion. No definite additional acute fracture or subluxatio n. The imaged ribs appear intact. Azygos lobe and fissure. Pulmonary fibrosis. Bibasilar indeterminate solid pulmonary nodules measure up to approximately 1.3 cm on the right lung base. These are new from the 2013 exam. Calcified plaque of the thoracic aorta. IMPRESSION: 1. Acute fractures of the superior and inferior endplates of T10 resulting in less than 20% vertebral body height loss. No associated retropulsion. This finding was called/faxed to the emergency departm ent at time of dictation. 2. Age-indeterminate 20% superior endplate compression deformity of T5. Correlate with point tenderne ss. 3. Remote burst fracture with kyphoplasty changes at T12 with unchanged retropulsion. 4. Remote T9 compression deformity. 5. Bibasilar solid pulmonary nodules measuring up to 1.3 cm. These may be on an infectious or inflamm atory basis however follow-up is recommended to exclude metastatic disease. Please refer to below summary of Fleischner criteria recommendations for follow-up of incidental CT n concepción Son, Guidelines for management of small pulmonary nodules detected on CT scans: A sta tement from the Fleischner Society, Radiology 237: [phone].) SOLID NODULES Solitary nodule size: <6 mm * Low risk patients: no follow-up needed * high risk patients: optional CT at 12 months Solitary nodule size: 6-8 mm * Low risk patients: follow-up at 6-12 months, then consider further follow-up at 18-24 months * high risk patients: initial follow-up CT at 6-12 months and then at 18-24 months if no change Solitary nodule size: >8 mm * either low or high risk patients - consider follow-up CT at 3 months, and/or CT-PET, and/or biopsy Multiple nodules size: <6 mm * Low risk patients: no routine follow-up * high risk patients: optional CT at 12 months Multiple nodules size: 6-8 mm * Low risk patients: follow-up at 3-6 months, then consider further follow-up at 18-24 months * high risk patients: follow-up at 3-6 months, then at 18-24 months if no change Multiple nodules size: >8 mm * Low risk patients: follow-up at 3-6 months, then consider further follow-up at 18-24 months * high risk patients: follow-up at 3-6 months, then at 18-24 months if no change Note: newly detected indeterminate nodule in persons 35 years of age or older. * Low risk patients: minimal or absent history of smoking and/or other known risk factors * high risk patients: history of smoking or of other known risk factors (e.g. first degree relative with lung cancer, or exposure to asbestos, radon, uranium) * if a nodule up to 8 mm is partly solid or is ground glass further follow-up is required after 24 m onths to exclude possible slow growing adenocarcinoma ([place]) SUBSOLID NODULES Solitary pure ground-glass nodule * nodule size <6 mm - no CT follow-up required * nodule size >=6 mm - follow-up CT at 6-12 months, then every 2 years until 5 years Solitary part-solid nodule * nodule size <6 mm - no CT follow-up required * nodule size >=6 mm - follow-up CT at 3-6 months. If unchanged, and solid component remains <6 mm, then annual follow-up for 5 years Multiple subsolid nodules * nodule size <6 mm - follow-up CT at 3-6 months, consider further follow-up at 2 and 4 years if sta ble * nodule size >=6 mm - follow-up CT at 3-6 months, subsequent management based on the most suspiciou s nodule(s) The above report was generated using voice recognition software. It may contain grammatical, syntax o r spelling errors. ACT 112: Negative or not required by law. The above report was generated using voice recognition software. It may contain grammatical, syntax o r spelling errors. Electronically signed by: Kaleb Grider M.D. 08/16/2019 7:17 AM
--- NOTE | 2019-08-16 08:02 | History & Physical Report ---
Date of Service August 16, 2019 Assessment & Plan (1) Small bowel obstruction: possible SBO, had some diarrhea this morning and last night so she is moving bowels may represent more of a gastroenteritis she had an NG tube placed in ED, was not draining anything, patient pulled it out accidentally when sneezing will not place a new NGT ask general surgery to see patient will monitor for flatus, more bowel movements, if that happens then allow clear liquids KUB in the morning LR at 80cc/hr (2) Abdominal pain: could be either SBO or gastroenteritis, started after she ate a hot dog last night Morphine PRN (3) Compression fracture: old fractures but there is a new fx at T10 loss of 20% of height of vertebral body no pain on palpation of the spine, able to sit up independently without pain for now, recommend pain control, will order PT/OT no obvious role for surgery, will hold off for now on spine consult (4) HTN (hypertension): BP stable (5) Paroxysmal atrial fibrillation: in NSR on Amiodarone as outpatient, will resume once clear that she can take PO (6) Syncope and collapse: occurred after moving her bowels monitor on tele for any arrhythmia most likely vagal response after moving bowels, some dehydration no ischemic changes on initial EKG PT/OT consults when appropriate History of Present Illness Chief Complaint: I feel sick to my stomach Primary Care Provider: [facility] 89 yo female with history of atrial fibrillation, HTN, compression fractures, presented to the ED early this morning due to worsening GI symptoms. The patient reports that at baseline she is independent, lives by herself at [place]. She was in her usual state of good health until last night. She was visiting with some honors students from [facility] and she had a hot dog and chips. An hour later she felt nauseated and had some abdominal pain. She then had a bowel movement that was loose which was abnormal for her. The abdominal pain got worse and she developed some nausea. She had to have another bowel movement around 1am and after she moved her bowels she stood up to walk to bedroom and she must have had a syncopal episode because the next thing she knew she was on the floor with her walker laying on top of her. She called for help and staff at [place] alerted EMS. She says that she did not notice any pain in her back. She was brought to the ED where her nausea persisted and she vomited once. She reports that she moved her bowels again in the ED, loose. CT in the ED showed a low grade small bowel obstruction. CT of the thoracic and lumbar spine showed acute compression fracture of T10, prior compression fracture with kyphoplasty at T12. CT head normal. CXR with mild bibasilar opacities, likely atelectasis. CT cervical spine negative for fractures. EKG showed NSR in the 60's no ischemia. Labs showed leukocytosis of 17k. Cr stable and electrolytes normal. Normal LFT . NGT was placed in the ED for the bowel obstruction. Allergies Allergy/AdvReac Type Severity Reaction Status Date / Time No Known Allergies Allergy Verified 08/21/17 16:30 Home Medications Home Medications Medication Instructions Recorded Confirmed Type acetaminophen [Tylenol] 325 mg PO Q4H PRN 08/16/19 08/16/19 History amiodarone 200 mg PO DAILY 08/16/19 08/16/19 History amlodipine 2.5 mg PO DAILY 08/16/19 08/16/19 History aspirin 81 mg PO DAILY 08/16/19 08/16/19 History calcium carbonate-vitamin D3 1 cap PO BID 08/16/19 08/16/19 History [Calcium 600 + D(3)] furosemide [Lasix] 20 mg PO DAILY 08/16/19 08/16/19 History levothyroxine 25 mcg PO DAILY 08/16/19 08/16/19 History lisinopril 20 mg PO DAILY 08/16/19 08/16/19 History oxycodone 5 mg PO Q4H PRN 08/16/19 08/16/19 History polyethylene glycol 3350 [Miralax] 17 g PO DAILY 08/16/19 08/16/19 History potassium chloride 10 meq PO DAILY 08/16/19 08/16/19 History sennosides [senna] 8.6 mg PO BID 08/16/19 08/16/19 History sodium chloride 2,000 mg PO BID 08/16/19 08/16/19 History tramadol [Ultram] 50 mg PO Q6H PRN 08/16/19 08/16/19 History Past Med/Surg History Medical History (Updated 08/16/19 @ 12:24 by Eduardo Gonzalez DO) HTN (hypertension) (Acute) Paroxysmal atrial fibrillation Pelvic fracture (Acute) Surgical History History of appendectomy History of back surgery Family History (Updated 08/16/19 @ 12:25 by Eduardo Gonzalez DO) Other Hypertension No significant family history Social History (Updated 08/16/19 @ 03:52 by Tristin Daugherty) Preferred Language: Ethiopian Communication Ability: Effective 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 Beliefs That Will Affect Care: None Current Living Situation: Alone Current Living Situation Comment: village Other Information That Helps Us Care for You: No Feels Safe at Home: Yes Safety Concerns: Feels Safe At This Time Smoking Status: Never smoker Hx Alcohol Use: No Hx Substance Use: No Review of Systems Review of Systems: All systems reviewed & are unremarkable except as noted in HPI & below Constitutional: + fatigue and + weakness; no fever, no chills and no sweats Respiratory: no cough, no dyspnea and no wheezing Cardiovascular: + syncope (occurred after moving bowels); no chest pain, no palpitations and no edema Gastrointestinal: + abdominal pain, + nausea, + vomiting and + diarrhea/loose stools; no constipation Genitourinary: no dysuria and no difficulty urinating Physical Exam Constitutional: WD/WN, vitals as above Eyes: PERRL, conjunctivae normal, anicteric sclerae ENMT: external ear and nose normal, oropharynx normal Neck: trachea midline, no thyromegaly Respiratory: normal respiratory effort, lungs clear to auscultation Cardiovascular: RRR, no murmur, no edema Gastrointestinal (Abdomen): Inspection/Auscultation: + abdomen distended (slightly) and normal bowel sounds Percussion/Palpation: + abdomen tender (diffuse, slight) and abdomen soft; no guarding, abdomen not rigid, no hernia and no ascites Musculoskeletal: no cyanosis or clubbing, extremities motor strength 5/5 Spine: no pain with cervical ROM, no thoracic spinal tenderness, no lumbar spinal tenderness and no paraspinal tenderness Skin: no rashes, warm and dry Neurologic: patellar DTR's 2+ bilat, sensation intact and PERRL, EOMI, acc ommodation nl, no face palsy, no dysarthria Psychiatric: A+Ox3, euthymic affect Lymphatic: no cervical or axillary lymphadenopathy Results & Data Vital Signs (Past 12 Hours) Vital Signs Temp Pulse Pulse Resp BP BP Pulse Ox 08/16/19 07:37 61 22 181/76 H 94 08/16/19 06:13 59 L 16 167/67 H 95 08/16/19 03:50 36.5 C 62 18 205/80 H 94 Laboratory Results Laboratory Results - last 24 hr 08/16/19 08/16/19 04:01 04:01 WBC 17.57 H RBC 4.52 Hgb 13.7 Hct 40.1 MCV 88.7 MCH 30.3 MCHC 34.2 RDW Std Deviation 49.3 H RDW Coeff of [place] 15.2 H Plt Count 271 MPV 9.3 Immature Gran % (Auto) 0.5 Neut % (Auto) 81.4 Lymph % (Auto) 9.9 [place] % (Auto) 7.2 Eos % (Auto) 0.7 Baso % (Auto) 0.3 Immature Gran # (Auto) 0.09 H Neut # (Auto) 14.30 H Lymph # (Auto) 1.74 [place] # (Auto) 1.26 H Eos # (Auto) 0.13 Baso # (Auto) 0.05 Sodium 133 L Potassium 3.7 Chloride 98 Carbon Dioxide 28 Anion Gap 7.0 BUN 20 H Creatinine 1.00 Est Cr Clr Drug Dosing 33.6 Est GFR ( Amer) 57.8 Est GFR (Non-Af Amer) 49.9 BUN/Creatinine Ratio 19.8 Glucose 120 H Calcium 9.1 Total Bilirubin 0.4 AST 29 ALT 24 Alkaline Phosphatase 65 Total Creatine Kinase 128 Total Protein 8.4 H Albumin 3.5 Globulin 4.9 H Albumin/Globulin Ratio 0.7 L TSH 9.640 H Free T4 1.58 Specimen Hemolysis Diagnostic Findings CT abdomen/pelvis IMPRESSION: 1. Findings suggestive of a moderate grade small bowel obstruction, as described above. Transition point within the upper pelvis, as described above. Small amount of associated ascites. Mildly distended, fluid-filled stomach. No pneumatosis, free air or portal venous gas. 2. Numerous nodules within the bilateral lower lobes. These are indeterminate and metastatic disease cannot be excluded. A follow-up chest CT is recommended. 3. No acute traumatic findings within the abdomen or pelvis. CT thoracic spine IMPRESSION: 1. Acute fractures of the superior and inferior endplates of T10 resulting in less than 20% vertebral body height loss. No associated retropulsion. This finding was called/faxed to the emergency department at time of dictation. 2. Age-indeterminate 20% superior endplate compression deformity of T5. Correlate with point tenderness. 3. Remote burst fracture with kyphoplasty changes at T12 with unchanged retropulsion. 4. Remote T9 compression deformity. 5. Bibasilar solid pulmonary nodules measuring up to 1.3 cm. These may be on an infectious or inflammatory basis however follow-up is recommended to exclude metastatic disease. CT head: normal CXR: bibasilar opacities ECG Indication: syncope Rhythm: normal sinus Findings: no acute ischemic change Code Status & VTE Plan Code Status full code VTE Prophylaxis Plan VTE Prophylaxis will be ordered: Yes PG Care Time/CCT Total # of Minutes Spent Total Time Spent with Patient: Total time spent is greater than 50% in coordination of care (as documented) at patient's floor/unit and/or counseling patient: Coding Level of Care Code 46073 Initial Inpt Care Lvl 3 Diagnoses Small bowel obstruction K56.609 Abdominal pain R10.9 Abdominal location: unspecified location Compression fracture HTN (hypertension) I10 Hypertension type: unspecified Paroxysmal atrial fibrillation I48.0 Syncope and collapse R55 (1) Abdominal pain Abdominal location: unspecified location Qualified Code(s): R10.9 - Unspecified abdominal pain (2) HTN (hypertension) Hypertension type: unspecified Qualified Code(s): I10 - Essential (primary) hypertension
[2019-08-16] MEDS ORDERED: MoRPHine SULFATE 4 MG/ML 1 ML CARP\\VIAL IV PRN (08:25)
[2019-08-16] MEDS ORDERED: ONDANSETRON INJ 2 MG/ML 2 ML VIAL IV PRN (08:25)
[2019-08-16] MEDS ORDERED: MoRPHine SULFATE 2 MG/ML CARP IV PRN (08:25)
--- NOTE | 2019-08-16 08:27 | Emergency Department Note ---
Entered by Tristin Daugherty acting as a scribe for History of Present Illness General Chief complaint: Vomiting Stated complaint: back pain Time Seen by Provider: 08/16/19 03:38 Source: patient History of Present Illness Onset (ago): day(s) (yesterday) Location: back Pain Consistency: + constant Quality: + other (back pain) Associated symptoms: + other (Positive for "blacking out," nausea, abdominal pain, and vomiting.) The patient is an 89 year old female who presents to the emergency department with complaints of constant back pain beginning yesterday. The patient states that she fell yesterday. She notes that she likely blacked out, as she woke up with her walker on top of her. She reports that she refused to come into the emergency department at that time as she did not have any pain. The patient states that she is now having back pain. She also complains of nausea and abdominal pain after eating a hot dog last night. She notes that she has had an appendectomy. She reports that she also has a history of back surgery. Home Medications Home Medications Medication Instructions Recorded Confirmed Type acetaminophen [Tylenol] 325 mg PO Q4H PRN 08/16/19 08/16/19 History amiodarone 200 mg PO DAILY 08/16/19 08/16/19 History amlodipine 2.5 mg PO DAILY 08/16/19 08/16/19 History aspirin 81 mg PO DAILY 08/16/19 08/16/19 History calcium carbonate-vitamin D3 1 cap PO BID 08/16/19 08/16/19 History [Calcium 600 + D(3)] furosemide [Lasix] 20 mg PO DAILY 08/16/19 08/16/19 History levothyroxine 25 mcg PO DAILY 08/16/19 08/16/19 History lisinopril 20 mg PO DAILY 08/16/19 08/16/19 History oxycodone 5 mg PO Q4H PRN 08/16/19 08/16/19 History polyethylene glycol 3350 [Miralax] 17 g PO DAILY 08/16/19 08/16/19 History potassium chloride 10 meq PO DAILY 08/16/19 08/16/19 History sennosides [senna] 8.6 mg PO BID 08/16/19 08/16/19 History sodium chloride 2,000 mg PO BID 08/16/19 08/16/19 History tramadol [Ultram] 50 mg PO Q6H PRN 08/16/19 08/16/19 History Allergies Allergy/AdvReac Type Severity Reaction Status Date / Time No Known Allergies Allergy Verified 08/21/17 16:30 Past Med/Surg History Family History (Updated 08/16/19 @ 03:52 by Tristin Daugherty) Other No significant family history Social History (Updated 08/16/19 @ 03:52 by Tristin Daugherty) Preferred Language: Khmer Communication Ability: Effective 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 and A total of 10 systems reviewed and were otherwise negative Physical Exam Vital Signs Vital Signs - 24 hr 08/16/19 03:50 08/16/19 06:13 Temperature 36.5 C Temperature Source Oral Pulse Rate 62 Pulse Rate [Right Finger] 59 L Pulse Rhythm Regular Pulse Strength Normal Respiratory Rate 18 16 Respiratory Effort / Characteristics Non-Labored Respiratory Depth Normal Normal Blood Pressure 205/80 H Blood Pressure [Right Arm] 167/67 H Blood Pressure Mean 121 Blood Pressure Mean [Right Arm] 100 Blood Pressure Position Lying Blood Pressure Position [Right Arm] Lying Pulse Oximetry 94 95 Oxygen Delivery Method Room Air Room Air Sepsis Recent Fever Within 48 Hours No Sepsis New/Unexplained Change in Mental Status No Sepsis Action Taken by Nursing No Action Required GENERAL: Awake, alert, well-appearing, in no acute distress HENT: Normocephalic, atraumatic. Oropharynx unremarkable. EYES: Normal conjunctiva. Sclera non-icteric. NECK: Supple. No nuchal rigidity. FROM. No JVD. RESPIRATORY: Clear to auscultation. CARDIAC: Regular rate, normal rhythm. Extremities warm and well perfused. Pulses equal. ABDOMEN: Soft, No rebound or guarding. No masses. Abdomen is distended, mild tenderness throughout. RECTAL: Deferred. MUSCULOSKELETAL: Chest examination reveals no tenderness. The back is symmetrical on inspection without obvious abnormality. There is no CVA tenderness to palpation. No joint edema. Tender to T12 area of spine. LOWER EXTREMITIES: Calves are equal size bilaterally and non-tender. No edema. No discoloration. NEURO: Normal sensorium. No sensory or motor deficits noted. SKIN: No rash or jaundice noted. Course Course 0340: The patient was evaluated in room B9. A complete history and physical exam was performed. 0708: Upon reevaluation, the patient is stable. I discussed the findings and the treatment plan with the patient. She expresses agreement and understanding. I spoke with Dr. Gonzalez of the [facility]. The patient will be evaluated for further management. Consultations Consultation #1: I reviewed the patient's case with Dr. Gonzalez - Hospitalist, [place] [facility]. He will evaluate the patient for further management. Time: 07:08 Administered Medications Ioversol (Optiray 320 100ml) 100 ml IV ONCE PRN PRN Reason: Interaction Checking Stop: 08/20/19 05:45 Last Admin: 08/16/19 05:46 Dose: 93 ml Documented by: [id number] Discontinued Medications Acetaminophen (Ofirmev) 1,000 mg in 100 mls @ 400 mls/hr IV NOW STA Stop: 08/16/19 03:56 Last Infusion: 08/16/19 04:45 Dose: 0 mls/hr Documented by: [id number] Admin: 08/16/19 04:20 Dose: 400 mls/hr Documented by: [id number] Ondansetron HCl (Zofran) 4 mg IV NOW STA Stop: 08/16/19 04:14 Last Admin: 08/16/19 04:19 Dose: 4 mg Documented by: [id number] Medical Decision Making Differential Diagnosis Differential diagnoses include major intracranial, cervical, spinal, thoracic, abdominal, pelvic and neurologic injury. Fracture, contusion, sprain, strain, laceration, abrasions included as well. Medical Records Attestation: I reviewed the patient's medical records. Home Medications Current Medication List: was personally reviewed by me Laboratory Data Attestation: I reviewed the patient's lab results. Result diagrams: 08/16/19 04:01 08/16/19 04:01 Lab Results 08/16/19 08/16/19 Range/Units 04:01 04:01 WBC 17.57 H (4.8-10.8) K/uL RBC 4.52 (4.2-5.4) M/uL Hgb 13.7 (12.0-16.0) g/dL Hct 40.1 (37-47) % MCV 88.7 (80-100) fL MCH 30.3 (25-34) pg MCHC 34.2 (32-36) g/dL RDW Std Deviation 49.3 H (36.4-46.3) fL RDW Coeff of Alka 15.2 H (11.5-14.5) % Plt Count 271 (130-400) K/uL MPV 9.3 (7.4-10.4) fL Immature Gran % (Auto) 0.5 % Neut % (Auto) 81.4 % Lymph % (Auto) 9.9 % Greer % (Auto) 7.2 % Eos % (Auto) 0.7 % Baso % (Auto) 0.3 % Immature Gran # (Auto) 0.09 H (0.00-0.02) K/uL Neut # (Auto) 14.30 H (1.4-6.5) K/uL Lymph # (Auto) 1.74 (1.2-3.4) K/uL Greer # (Auto) 1.26 H (0.11-0.59) K/uL Eos # (Auto) 0.13 (0-0.5) K/uL Baso # (Auto) 0.05 (0-0.2) K/uL Sodium 133 L (136-145) mmol/L Potassium 3.7 (3.5-5.1) mmol/L Chloride 98 (98-107) mmol/L Carbon Dioxide 28 (21-32) mmol/L Anion Gap 7.0 (3-11) BUN 20 H (7-18) mg/dl Creatinine 1.00 (0.6-1.2) mg/dl Est Cr Clr Drug Dosing 33.6 ml/min Est GFR ( Amer) 57.8 Est GFR (Non-Af Amer) 49.9 BUN/Creatinine Ratio 19.8 (10-20) Glucose 120 H (70-99) mg/dl Calcium 9.1 (8.5-10.1) mg/dl Total Bilirubin 0.4 (0.2-1) mg/dl AST 29 (15-37) U/L ALT 24 (12-78) U/L Alkaline Phosphatase 65 (45-117) U/L Total Creatine Kinase 128 (26-192) U/L Total Protein 8.4 H (6.4-8.2) gm/dl Albumin 3.5 (3.4-5.0) gm/dl Globulin 4.9 H (2.5-4.0) gm/dl Albumin/Globulin Ratio 0.7 L (0.9-2) TSH 9.640 H (0.300-4.500) uIu/ml Free T4 1.58 (0.8-1.6) ng/dl Specimen Hemolysis Imaging Data Attestation: I personally reviewed and interpreted this imaging study as follows: My Impression: 1 VIEW CHEST X-RAY: Chronic changes. No pneumonia, congestion, or pneumothorax. Radiologist's Impression: Radiology results as stated below per my review and the radiologist's interpretation: CT ABDOMEN & PELVIS With Contrast: Compared to 11/20/12. Distended fluid-filled small bowel loops with distal decompressed loops compatible with bowel obstruction. The transition point is likely at the midline posterior lower abdomen (image [id number]) where there is mild bowel wall thickening, possible enteritis not excluded. Trace free fluid. No fr ee air. No evidence of solid organ injury. Prominent intrahepatic ducts. Small nodular lung densities. Compare to prior imaging if available or consider follow up chest CT. Pelvic fracture deformities. Nonspecific sclerotic changes in the sacrum. Additional incidental findings. Radiologist: Merced Trejo MD. CT L SPINE: No evidence of acute fracture. Degenerative changes with scoliosis. Radiologist: Merced Trejo MD. CT HEAD: No intracranial hemorrhage or depressed skull fracture. Radiologist: Merced Trejo MD. CT C SPINE: Degenerative changes without evidence of acute fracture. Radiologist: Merced Trejo MD. CT T SPINE: No definite acute fracture. T12 compression deformity status post vertebroplasty. Small nodular lung densities. Compare to prior imaging if available or consider follow up chest CT. Radiologist: Merced Trejo MD. ECG Data Attestation: I personally reviewed and interpreted this ECG as follows: Indication: + back/shoulder pain Rate (beats per minute): 60 Rhythm: + normal sinus ECG ST segments: no ST depression and no ST elevation Additional Comments: Normal EKG, QTC 468. Blood Pressure Blood Pressure Findings: Elevated blood pressure Blood Pressure Disposition: Referred to patients primary care provider Head Trauma GCS Score: 15 MDM Narrative This is an 89-year-old female who fell earlier in the evening but now presents emergency department complaining of abdominal pain as well as vomiting. The patient is also complaining of back pain. Using shared medical decision making with the patient she was sent for CAT scan of the head spine as well as abdomen pelvis. The patient's abdomen pelvis is concerning for a small bowel obstruction. For this reason an NG tube was placed. The patient does have numerous compression fractures to her back. She was given Tylenol as well as Zofran here in the emergency department and a normal saline bolus. I did discuss the case with the hospitalist service who did agree to admit the patient. Patient and family were in agreement with the treatment plan. Impression & Plan Small bowel obstruction, HTN (hypertension), Abdominal pain, Compression fracture, Fall Discharge Plan Visit Data Chief Complaint: Vomiting Stated Complaint: back pain ED Provider: Mihir Denton Discharge Problem: Small bowel obstruction, HTN (hypertension), Abdominal pain, Compression fracture, Fall Patient Disposition: Being Evaluated by Hospitalist Discharge Instructions Interventions: ED Discharge Assessment Last Done: 08/16/19 08:00 Discharge Problem: HTN (hypertension) Qualifiers: Hypertension type: unspecified Qualified Code(s): I10 - Essential (primary) hypertension Abdominal pain Qualifiers: Abdominal location: unspecified location Qualified Code(s): R10.9 - Unspecified abdominal pain Fall Qualifiers: Encounter type: initial encounter Qualified Code(s): W19.XXXA - Unspecified fall, initial encounter The scribe's documentation has been prepared under my direction and personally reviewed by me in its entirety. I confirm that the note above accurately reflects all work, treatment, procedures, and medical decision making performed by me.
[2019-08-16] MEDS: LACTATED RINGER'S 1,000 ML IV SCH (13:31)
--- NOTE | 2019-08-16 14:17 | Electrocardiogram Report ---
Test Reason : Blood Pressure : / mmHG Vent. Rate : 060 BPM Atrial Rate : 060 BPM P-R Int : 162 ms QRS Dur : 082 ms QT Int : 468 ms P-R-T Axes : 015 -11 059 degrees QTc Int : 468 ms Normal sinus rhythm Normal ECG When compared with ECG of 24-NOV-2012 06:55, Criteria for Septal infarct are no longer Present Confirmed by Scott Garcai ([id number]) on 08/16/2019 2:16:39 PM Referred By: [facility] Confirmed By:Scott Garcia
[2019-08-16 14:25] LABS: Appearance Urine Clear (Clear); Bacteria Urine Automated Negative (Negative); Bilirubin Urine Negative (Negative); Blood Urine Negative (Negative); Color Urine Yellow; Epithelial Cell Urine Auto 20-30 /lpf (0-5); Glucose Urine UA Negative (Negative); Ketones Urine Negative (Negative); Leukocyte Esterase Urine Negative (Negative); Nitrite Urine Negative (Negative); Specific Gravity Urine > 1.045 (1.000-1.030); Urobilinogen Urine Negative (Negative)
[2019-08-16 14:36] LABS: Protein Urine Negative (Negative); Sulfosalicylic Acid Urine Negative (Negative)
[2019-08-16] MEDS: AMIODARONE 200 MG TAB PO SCH (17:45)
--- NOTE | 2019-08-16 19:43 | Surgery Consultation ---
Date of Consultation August 16, 2019 Assessment & Plan (1) Small bowel obstruction: Small bowel obstruction in the face of minimal abdominal surgery IV fluids/correct electrolytes. Symptom control Recheck KUB tomorrow Keep n.p.o. for now No indication for emergent surgical intervention. We will follow along. History of Present Illness Attending Physician: Eduardo Gonzalez DO History of Present Illness 89-year-old female presented to the emergency room today with some mild abdominal pain one episode of emesis as well as some back pain. She is currently denying any abdominal symptoms. She has no nausea. She is had no more emesis. Currently denying abdominal pain. No recent change to her oral intake or bowel function prior to today. Her only abdominal operation in the past was an appendectomy. Allergies Allergy/AdvReac Type Severity Reaction Status Date / Time No Known Allergies Allergy Verified 08/21/17 16:30 Home Medications Home Medications Medication Instructions Recorded Confirmed Type acetaminophen [Tylenol] 325 mg PO Q4H PRN 08/16/19 08/16/19 History amiodarone 200 mg PO DAILY 08/16/19 08/16/19 History amlodipine 2.5 mg PO DAILY 08/16/19 08/16/19 History aspirin 81 mg PO DAILY 08/16/19 08/16/19 History calcium carbonate-vitamin D3 1 cap PO BID 08/16/19 08/16/19 History [Calcium 600 + D(3)] furosemide [Lasix] 20 mg PO DAILY 08/16/19 08/16/19 History levothyroxine 25 mcg PO DAILY 08/16/19 08/16/19 History lisinopril 20 mg PO DAILY 08/16/19 08/16/19 History oxycodone 5 mg PO Q4H PRN 08/16/19 08/16/19 History polyethylene glycol 3350 [Miralax] 17 g PO DAILY 08/16/19 08/16/19 History potassium chloride 10 meq PO DAILY 08/16/19 08/16/19 History sennosides [senna] 8.6 mg PO BID 08/16/19 08/16/19 History sodium chloride 2,000 mg PO BID 08/16/19 08/16/19 History tramadol [Ultram] 50 mg PO Q6H PRN 08/16/19 08/16/19 History Patient History Medical History (Updated 08/16/19 @ 12:24 by Eduardo Gonzalez DO) HTN (hypertension) (Acute) Paroxysmal atrial fibrillation Pelvic fracture (Acute) Surgical History History of appendectomy History of back surgery Family History (Updated 08/16/19 @ 12:25 by Eduardo Gonzalez DO) Other Hypertension No significant family history Social History (Updated 08/16/19 @ 03:52 by Tristin Daugherty) Preferred Language: Kinyarwanda Communication Ability: Effective 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 Beliefs That Will Affect Care: None marital status: / Current Living Situation: Alone Current Living Situation Comment: [place] Other Information That Helps Us Care for You: No Feels Safe at Home: Yes Safety Concerns: Feels Safe At This Time Smoking Status: Never smoker Hx Alcohol Use: No Hx Substance Use: No Review of Systems Review of Systems: All systems reviewed & are unremarkable except as noted in HPI & below Physical Exam Constitutional: WD/WN, vitals as above no acute distress and not ill appearing Eyes: PERRL, conjunctivae normal, anicteric sclerae EOM intact bilaterally ENMT: external ear and nose normal, oropharynx normal Ears: no hearing impairment Neck: trachea midline, no thyromegaly Respiratory: normal respiratory effort; no respiratory distress and does not use accessory muscles Cardiovascular: Rate/Rhythm: regular rate and regular rhythm Gastrointestinal (Abdomen): Soft. Perhaps mild distention. Positive bowel sounds. Nontender. Skin: no rashes, warm and dry Psychiatric: Orientation: alert, oriented x 3 and cooperative Results & Data Vital Signs (Past 12 Hours) Vital Signs Temp Pulse Pulse Resp BP Pulse Ox 08/16/19 17:40 37.4 C 63 18 153/67 H 91 08/16/19 16:29 37.1 C 63 18 164/82 H 92 08/16/19 15:14 60 08/16/19 11:59 37.1 C 63 18 163/76 H 92 08/16/19 08:20 37.0 C 58 L 20 178/72 H 91 PG Care Time/CCT Total # of Minutes Spent Total Time Spent with Patient: Total time spent is greater than 50% in coordination of care (as documented) at patient's floor/unit and/or counseling patient: Coding Level of Care Code 53975 Initial Inpt Care Lvl 3 Diagnoses Small bowel obstruction K56.600
[2019-08-16] MEDS: HEPARIN SOD 5,000 UNIT/0.5 ML VIAL SQ SCH (20:48)
[2019-08-17] MEDS: ACETAMINOPHEN 325 MG TAB PO PRN ×4 (00:20→21:09)
[2019-08-17] MEDS: LACTATED RINGER'S 1,000 ML IV SCH (02:49)
[2019-08-17 07:32] LABS: Basophils # (auto) 0.06 K/uL (0-0.2); Basophils % (auto) 0.8 %; Eosinophils # (auto) 0.19 K/uL (0-0.5); Eosinophils % (auto) 2.5 %; Hematocrit (blood only) 34.4 % (37-47); Hemoglobin 11.5 g/dL (12.0-16.0); Immature Granulocytes # (auto) 0.02 K/uL (0.00-0.02); Immature Granulocytes % (auto) 0.3 %; Lymphocytes # (auto) 1.43 K/uL (1.2-3.4); Lymphocytes % (auto) 18.5 %; Mean Corpuscular Hemoglobin 29.8 pg (25-34); Mean Corpuscular Hgb Conc 33.4 g/dL (32-36); Mean Corpuscular Volume 89.1 fL (80-100); Mean Platelet Volume 9.3 fL (7.4-10.4); Monocytes # (auto) 0.87 K/uL (0.11-0.59); Monocytes % (auto) 11.3 %; Neutrophils # (auto) 5.15 K/uL (1.4-6.5); Neutrophils % (auto) 66.6 %; Platelet Count 242 K/uL (130-400); RDW Coefficient of Variation 15.2 % (11.5-14.5); RDW Standard Deviation 49.2 fL (36.4-46.3); Red Blood Count 3.86 M/uL (4.2-5.4); White Blood Count 7.72 K/uL (4.8-10.8)
--- NOTE | 2019-08-17 07:33 | XRay Report ---
XR KUB/Abdomen 1 view CLINICAL HISTORY: 89 years-old Female presenting with Sbo. TECHNIQUE: Single supine view of the abdomen was obtained. COMPARISON: 11/23/[address] from 08/26/2019. FINDINGS: Mild gaseous distention of small and large bowel. The configuration of small bowel loops in the pelvi s has somewhat of a stacked configuration with a diameter of over 3 cm though this may be affected by magnification. No gross pneumoperitoneum align for supine technique. Allowing for bowel gas and stool, no calcifications to suggest nephrolithiasis. Added density of the central pelvis may relate to excreted contrast in the urinary bladder. Degenerative changes of the spine. Old fracture deformities of the superior and inferior pubic rami. Lung bases clear. IMPRESSION: 1. Gaseous distention of small bowel loops with a stacked configuration in the pelvis suggest persis tent bowel obstruction. ACT 112: Negative or not required by law. Electronically signed by: Elieser Carrillo M.D. 08/17/2019 7:31 AM
[2019-08-17 07:44] LABS: INR 1.3 (0.9-1.1); Prothrombin Time 12.9 Seconds (9.0-12.0)
[2019-08-17] MEDS: HEPARIN SOD 5,000 UNIT/0.5 ML VIAL SQ SCH ×2 (09:02→21:09)
[2019-08-17] MEDS: AMIODARONE 200 MG TAB PO SCH (09:03)
--- NOTE | 2019-08-17 09:30 | Surgery Progress Note ---
Date of Service August 17, 2019 Assessment & Plan (1) Small bowel obstruction: xrays still showing sbo clinically doing better had liquids with no n/v I suspect it's an ileus related to her recent compression fracture will stay on clears. repeat KUB tomorrow. agree with PT consult. Subjective pt seen. feeling better today. no n/v. denies abdominal pain. still having back pain. Physical Exam Physical Exam: alert. nad abd: ? mild distension. non-tender. Results & Data Vital Signs (Past 12 Hours) Vital Signs Temp Pulse Pulse Resp BP BP Pulse Ox 08/17/19 07:44 55 L 08/17/19 07:05 36.8 C 55 L 17 166/63 H 91 08/17/19 03:27 37.3 C 73 18 133/57 L 95 08/17/19 00:14 37.4 C 60 18 162/71 H 91 08/17/19 00:06 54 L PG Care Time/CCT Total # of Minutes Spent Total Time Spent with Patient: Total time spent is greater than 50% in coordination of care (as documented) at patient's floor/unit and/or counseling patient: Coding Level of Care Code 44577 Subseq Hosp Care Lvl 3 Diagnoses Small bowel obstruction K56.609
[2019-08-17] MEDS ORDERED: TRAMADOL HCL 50 MG TABLET PO PRN (09:35)
[2019-08-17] MEDS: AMLODIPINE BESYLATE 5 MG TAB PO SCH (10:35)
[2019-08-17] MEDS: POTASSIUM CHLORIDE 10 MEQ TABCR PO SCH (10:35)
[2019-08-17] MEDS: ASPIRIN 81 MG ECTAB PO SCH (10:35)
[2019-08-17] MEDS: lisinopriL 20 MG TAB PO SCH (10:36)
[2019-08-17] MEDS: LEVOTHYROXINE SODIUM 25 MCG TABLET PO SCH (10:36)
[2019-08-17] MEDS: CALCIUM 600MG + VIT D 400 IU TAB PO SCH ×2 (10:36→21:09)
[2019-08-17] MEDS: SODIUM CHLORIDE 1 GM TABLET PO SCH ×2 (10:45→21:09)
--- NOTE | 2019-08-17 13:30 | Hospitalist Progress Note ---
Date of Service August 17, 2019 Assessment & Plan (1) Small bowel obstruction: possible SBO vs ileus KUB on 08/17 with persistent dilated small bowel loops, but she moved bowels three times in past 36 hours hypoactive bowel sounds on exam, non-distended continue clear liquids encourage mobility, PT/OT consulted repeat KUB tomorrow general surgery following, appreciate recommendations stop fluids today (2) Abdominal pain: no pain today likely due to SBO/ileus (3) Compression fracture: old fractures but there is a new fx at T10 loss of 20% of height of vertebral body no pain on palpation of the spine, able to sit up independently without pain for now, recommend pain control, will order PT/OT no obvious role for surgery, will hold off for now on spine consult (4) HTN (hypertension): BP stable (5) Paroxysmal atrial fibrillation: in NSR continue Amiodarone noted to not be on anticoagulation, likely because she is in NSR (6) Syncope and collapse: occurred after moving her bowels monitor on tele for any arrhythmia (no issues) most likely vagal response after moving bowels, some dehydration no ischemic changes on initial EKG PT/OT consults when appropriate Subjective patient doing well, tolerating clear liquids, no vomiting no BM today but had one yesterday afternoon appreciate general surgery note KUB today still with some dilated loops of small bowel hypoactive bowel sounds no pain in her spine on exam reviewed labs, CBC stable, UA last night negative for infection updated family at the bedside, will get PT/OT evaluations explained plan for the SBO/ileus? Review of Systems Review of Systems: All systems reviewed & are unremarkable except as noted in HPI & below Constitutional: + fatigue and + weakness; no fever, no chills and no sweats Respiratory: no cough and no dyspnea Cardiovascular: no chest pain, no palpitations and no edema Gastrointestinal: no abdominal pain, no nausea, no vomiting, no constipation and no diarrhea/loose stools Genitourinary: no dysuria Musculoskeletal: + muscle weakness; no back pain Physical Exam Constitutional: WD/WN, vitals as above Eyes: PERRL, conjunctivae normal, anicteric sclerae ENMT: external ear and nose normal, oropharynx normal Neck: trachea midline, no thyromegaly Respiratory: normal respiratory effort, lungs clear to auscultation Cardiovascular: RRR, no murmur, no edema Gastrointestinal (Abdomen): Inspection/Auscultation: + hypoactive bowel sounds; abdomen not distended Percussion/Palpation: abdomen soft; abdomen nontender, no guarding, abdomen not rigid, no hernia and no ascites Musculoskeletal: no cyanosis or clubbing, extremities motor strength 5/5 Spine: no pain with cervical ROM, no thoracic spinal tenderness, no lumbar spinal tenderness and no paraspinal tenderness Skin: no rashes, warm and dry Neurologic: patellar DTR's 2+ bilat, sensation intact and PERRL, EOMI, accommodation nl, no face palsy, no dysarthria Psychiatric: A+Ox3, euthymic affect Lymphatic: no cervical or axillary lymphadenopathy Results & Data ([facility]) Vital Signs (Past 12 Hours) Vital Signs Temp Pulse Pulse Resp BP BP Pulse Ox 08/17/19 11:45 36.8 C 53 L 18 168/70 H 92 08/17/19 07:44 55 L 08/17/19 07:05 36.8 C 55 L 17 166/63 H 91 08/17/19 03:27 37.3 C 73 18 133/57 L 95 Laboratory Results Laboratory Results - last 24 hr 08/16/19 08/17/19 08/17/19 Unknown 07:09 07:09 WBC 7.72 RBC 3.86 L Hgb 11.5 L Hct 34.4 L MCV 89.1 MCH 29.8 MCHC 33.4 RDW Std Deviation 49.2 H RDW Coeff of [place] 15.2 H Plt Count 242 MPV 9.3 Immature Gran % (Auto) 0.3 Neut % (Auto) 66.6 Lymph % (Auto) 18.5 [place] % (Auto) 11.3 Eos % (Auto) 2.5 Baso % (Auto) 0.8 Immature Gran # (Auto) 0.02 Neut # (Auto) 5.15 Lymph # (Auto) 1.43 [place] # (Auto) 0.87 H Eos # (Auto) 0.19 Baso # (Auto) 0.06 PT 12.9 H INR 1.3 H Urine Color Yellow Urine Appearance Clear Urine pH 8.0 H Ur Specific [place] > 1.045 H Urine Protein Negative Urine Glucose (UA) Negative Urine Ketones Negative Urine Blood Negative Urine Nitrite Negative Urine Bilirubin Negative Urine Urobilinogen Negative Ur Leukocyte Esterase Negative Urine WBC (Auto) 1-5 Urine RBC (Auto) 10-30 H U Hyaline Cast (Auto) 1-5 U Epithel Cells (Auto) 20-30 H Urine Bacteria (Auto) Negative Medications Administered Current Inpatient Medications Acetaminophen (Tylenol) 650 mg PO Q6H PRN PRN Reason: Pain Stop: 09/15/19 17:06 Last Admin: 08/17/19 09:04 Dose: 650 mg Documented by: Amiodarone HCl (Cordarone) 200 mg PO DAILY [facility] Stop: 09/15/19 16:44 Last Admin: 08/17/19 09:03 Dose: 200 mg Documented by: Amlodipine Besylate (Norvasc) 2.5 mg PO DAILY [facility] Stop: 09/16/19 09:44 Last Admin: 08/17/19 10:35 Dose: 2.5 mg Documented by: Aspirin (Ecotrin Ectab) 81 mg PO DAILY [facility] Stop: 09/16/19 09:44 Last Admin: 08/17/19 10:35 Dose: 81 mg Documented by: Heparin Sodium (Porcine) (Heparin Sodium (Porcine)) 5,000 units SQ Q12 [facility]O Stop: 09/15/19 20:59 Last Admin: 08/17/19 09:02 Dose: 5,000 units Documented by: Levothyroxine Sodium (Synthroid) 25 mcg PO DAILYBB [facility] Stop: 09/16/19 09:44 Last Admin: 08/17/19 10:36 Dose: 25 mcg Documented by: Lisinopril (Zestril) 20 mg PO DAILY [facility] Stop: 09/16/19 09:44 Last Admin: 08/17/19 10:36 Dose: 20 mg Documented by: Morphine Sulfate (Morphine Sulfate) 2 mg IV Q4H PRN PRN Reason: Pain Stop: 08/30/19 08:24 Morphine Sulfate (Morphine Sulfate) 4 mg IV Q4H PRN PRN Reason: Severe Pain Stop: 08/30/19 08:24 Multivitamins/Minerals (Caltrate Plus) 1 tab PO BID [facility] Stop: 09/16/19 09:44 Last Admin: 08/17/19 10:36 Dose: 1 tab Documented by: Ondansetron HCl (Zofran) 4 mg IV Q6H PRN PRN Reason: Nausea Stop: 09/15/19 08:24 Oxycodone HCl (Roxicodone Immediate Rel) 5 mg PO Q4H PRN PRN Reason: Severe Pain (Scale Score 7-10) Stop: 08/31/19 09:34 Potassium Chloride (Klor-Con M10) 10 meq PO DAILY [facility] Stop: 09/16/19 09:44 Last Admin: 08/17/19 10:35 Dose: 10 meq Documented by: Sodium Chloride (Sodium Chloride) 2 gm PO BID [facility] Stop: 09/16/19 09:44 Last Admin: 08/17/19 10:45 Dose: 2 gm Documented by: Tramadol HCl (Ultram) 50 mg PO Q6H PRN PRN Reason: Moderate Pain (Scale Score 5-6) Stop: 09/16/19 09:34 PG Care Time/CCT Total # of Minutes Spent Total Time Spent with Patient: Total time spent is greater than 50% in coordination of care (as documented) at patient's floor/unit and/or counseling patient: Coding Level of Care Code 02052 Subseq Hosp Care Lvl 2 Diagnoses Small bowel obstruction K56.609 Abdominal pain R10.9 Abdominal location: unspecified location Compression fracture HTN (hypertension) I10 Hypertension type: unspecified Paroxysmal atrial fibrillation I48.0 Syncope and collapse R55 (1) Abdominal pain Abdominal location: unspecified location Qualified Code(s): R10.9 - Unspecified abdominal pain (2) HTN (hypertension) Hypertension type: unspecified Qualified Code(s): I10 - Essential (primary) hypertension
[2019-08-17] MEDS ORDERED: OLANZAPINE 2.5 MG TAB PO ONE (23:33)
[2019-08-18] MEDS: LEVOTHYROXINE SODIUM 25 MCG TABLET PO SCH (06:31)
--- NOTE | 2019-08-18 07:25 | XRay Report ---
KUB CLINICAL HISTORY: SBO vs Ileus COMPARISON STUDY: CT of the abdomen and pelvis August 16, 2019. KUB August 17, 2019. FINDINGS: Mild gaseous distention of several small bowel loops is noted. Gas within the colon has inc reased. There are old bilateral ischiopubic ring fractures. IMPRESSION: Persistent mild small bowel dilatation with interval increase in gas within the colon. T he findings could reflect a partial small bowel obstruction or ileus. ACT 112: Negative or not required by law. Electronically signed by: James Mccord M.D. 08/18/2019 7:24 AM
[2019-08-18] MEDS: OXYCODONE HCL IR 5 MG TAB (IMMEDIATE RELEASE) PO PRN ×3 (07:48→20:09)
[2019-08-18] MEDS: AMLODIPINE BESYLATE 5 MG TAB PO SCH (07:51)
[2019-08-18] MEDS: lisinopriL 20 MG TAB PO SCH (07:51)
[2019-08-18] MEDS: AMIODARONE 200 MG TAB PO SCH (07:51)
[2019-08-18] MEDS: CALCIUM 600MG + VIT D 400 IU TAB PO SCH ×2 (07:52→20:09)
[2019-08-18] MEDS: SODIUM CHLORIDE 1 GM TABLET PO SCH ×2 (07:52→20:09)
[2019-08-18] MEDS: ASPIRIN 81 MG ECTAB PO SCH (07:52)
[2019-08-18] MEDS: POTASSIUM CHLORIDE 10 MEQ TABCR PO SCH (07:52)
[2019-08-18] MEDS: HEPARIN SOD 5,000 UNIT/0.5 ML VIAL SQ SCH ×2 (07:54→20:09)
--- NOTE | 2019-08-18 09:11 | Surgery Progress Note ---
Date of Service August 18, 2019 Assessment & Plan (1) Small bowel obstruction: I suspect this is likely an ileus from the fractures rather than a bowel obstruction. Clinically she is doing well. We will increase her diet to full liquids. X-ray shows air in the colon with improvement of the bowel dilation. We will restart her Senokot as well. With added narcotics for her compression fracture she may need some MiraLAX upon discharge with her outpatient medications. (2) Compression fracture: Subjective Patient seen. Her only complaint is back pain from her compression fracture. She tolerated liquids yesterday with no nausea or vomiting. No bowel movements yet. She denies abdominal pain. Physical Exam Physical Exam: Alert. Moderate discomfort from back pain. Abdomen is soft. Nontender. Results & Data Vital Signs (Past 12 Hours) Vital Signs Temp Pulse Pulse Resp BP Pulse Ox 08/18/19 08:47 56 L 08/18/19 08:18 60 18 171/74 H 93 08/18/19 03:56 36.9 C 58 L 20 169/73 H 94 08/17/19 22:00 36.8 C 53 L 20 161/76 H 93 PG Care Time/CCT Total # of Minutes Spent Total Time Spent with Patient: Total time spent is greater than 50% in coordination of care (as documented) at patient's floor/unit and/or counseling patient: Coding Level of Care Code 13339 Subseq Hosp Care Lvl 3 Diagnoses Small bowel obstruction K56.609 Compression fracture
[2019-08-18] MEDS: POLYETHYLENE (MIRALAX) 17 GM PACK PO SCH (09:50)
[2019-08-18 11:09] LABS: BUN Creatinine Ratio 9.6 (10-20); Calcium 8.3 mg/dl (8.5-10.1); Creatinine Clr Calc Pharmacy 31.3 ml/min; Est GFR (Non-African American) 55.2; Potassium 3.3 mmol/L (3.5-5.1)
--- NOTE | 2019-08-18 11:39 | XRay Report ---
XR hip LT 2V w pelvis CLINICAL HISTORY: Pain, fall COMPARISON: CT of the abdomen and pelvis August 16, 2019. FINDINGS: Old bilateral ischiopubic ring fractures are noted. No acute fracture within the pelvis or hips is identified. Old bilateral sacral ala fractures are better depicted on prior CT. IMPRESSION: 1. No acute fracture within the pelvis or hips. 2. Old bilateral ischiopubic ring and sacral ala fractures. ACT 112: Negative or not required by law. Electronically signed by: James Mccord M.D. 08/18/2019 11:38 AM
--- NOTE | 2019-08-18 14:34 | Hospitalist Progress Note ---
Date of Service August 18, 2019 Assessment & Plan (1) Ileus: initially though to have partial SBO clinically appears to favor ileus as bowel sounds hypoactive KUB today with dilated loops of bowel, some gas in the colon no flatus or BM today, did have BM three times on the day of admission (two days ago) continue with Senokot BID, Miralax daily per general surgery advanced to full liquid diet for time being, would prefer her to have flatus, BM prior to advancing further try to limit Oxycodone (she was using this at home for pain) encourage activity hope for flatus, BM tomorrow? should go to the [facility] on discharge (2) Small bowel obstruction: see above, more likely ileus at this point continues with hypoactive bowel sounds, no distension no nausea or vomiting full liquid diet (3) Abdominal pain: no pain for two days likely due to SBO/ileus (4) Compression fracture: old fractures but there is a new fx at T10 loss of 20% of height of vertebral body no pain on palpation of the spine, able to sit up independently without pain for now, recommend pain control, will order PT/OT no obvious role for surgery, will hold off for now on spine consult Oxycodone, Ultram PRN PT/OT patient and family would like to go to [facility], she is medicare will ask CM to look into short term rehab prior to going to [place] independent living (5) HTN (hypertension): BP stable (6) Paroxysmal atrial fibrillation: in NSR continue Amiodarone noted to not be on anticoagulation, likely because she is in NSR (7) Syncope and collapse: occurred after moving her bowels monitor on tele for any arrhythmia (no issues) most likely vagal response after moving bowels, some dehydration no ischemic changes on initial EKG PT/OT consults when appropriate (8) Left hip pain: not present on admission likely due to walking 6 laps in the hallway yesterday left hip and pelvis x-ray with no fractures Subjective patient feeling well today, sitting up in chair eating full liquid diet no flatus or BM today, no abdominal pain, no nausea after eating discussed with general surgery, appreciate their input, more likely ileus KUB today viewed by myself, still with dilated small bowel but she has air in colon hypoactive bowel sounds on exam supports ileus diagnosis patient ambulated in the halls yesterday, now with more left lower back pain, left hip pain did not have this pain on admission, discussed that it could have been due to ambulating, delayed pain from ligament strain from fall daughter concerned about pelvis and hip fractures hip/pelvis x-ray showed no acute fractures, showed old pubic and sacral fractures discussed with daughter, hope for [facility] tomorrow discussed with CM, aware of plan for [facility] if possible Review of Systems Review of Systems: All systems reviewed & are unremarkable except as noted in HPI & below Respiratory: no cough and no dyspnea Cardiovascular: no chest pain Gastrointestinal: + constipation (and obstipation); no abdominal pain, no nausea, no vomiting and no diarrhea/loose stools Musculoskeletal: + back pain and + joint pain (left hip, left flank) Physical Exam Constitutional: WD/WN, vitals as above Eyes: PERRL, conjunctivae normal, anicteric sclerae ENMT: external ear and nose normal, oropharynx normal Neck: trachea midline, no thyromegaly Respiratory: normal respiratory effort, lungs clear to auscultation Cardiovascular: RRR, no murmur, no edema Gastrointestinal (Abdomen): Inspection/Auscultation: + hypoactive bowel sounds; abdomen not distended Percussion/Palpation: abdomen soft; abdomen nontender, no guarding, abdomen not rigid, no hernia and no ascites Musculoskeletal: no cyanosis or clubbing, extremities motor strength 5/5 Spine: no pain with cervical ROM, no thoracic spinal tenderness, no lumbar spinal tenderness and no paraspinal tenderness Skin: no rashes, warm and dry Neurologic: patellar DTR's 2+ bilat, sensation intact and PERRL, EOMI, accommodation nl, no face palsy, no dysarthria Psychiatric: A+Ox3, euthymic affect Lymphatic: no cervical or axillary lymphadenopathy Results & Data ([facility]) Vital Signs (Past 12 Hours) Vital Signs Temp Pulse Pulse Resp BP Pulse Ox 08/18/19 12:26 37.0 C 57 L 18 104/63 93 08/18/19 08:47 56 L 08/18/19 08:18 60 18 171/74 H 93 08/18/19 03:56 36.9 C 58 L 20 169/73 H 94 Laboratory Results Laboratory Results - last 24 hr 08/18/19 10:31 Sodium 135 L Potassium 3.3 L Chloride 100 Carbon Dioxide 30 Anion Gap 5.0 BUN 9 Creatinine 0.92 Est Cr Clr Drug Dosing 31.3 Est GFR ( Amer) 64.0 Est GFR (Non-Af Amer) 55.2 BUN/Creatinine Ratio 9.6 L Glucose 104 H Calcium 8.3 L Diagnostic Findings XR hip LT 2V w pelvis CLINICAL HISTORY: Pain, fall COMPARISON: CT of the abdomen and pelvis August 16, 2019. FINDINGS: Old bilateral ischiopubic ring fractures are noted. No acute fracture within the pelvis or hips is identified. Old bilateral sacral ala fractures are better depicted on prior CT. IMPRESSION: 1. No acute fracture within the pelvis or hips. 2. Old bilateral ischiopubic ring and sacral ala fractures. Medications Administered Current Inpatient Medications Acetaminophen (Tylenol) 650 mg PO Q6H PRN PRN Reason: Pain Stop: 09/15/19 17:06 Last Admin: 08/17/19 21:09 Dose: 650 mg Documented by: Amiodarone HCl (Cordarone) 200 mg PO DAILY [facility] Stop: 09/15/19 16:44 Last Admin: 08/18/19 07:51 Dose: 200 mg Documented by: Amlodipine Besylate (Norvasc) 2.5 mg PO DAILY [facility] Stop: 09/16/19 09:44 Last Admin: 08/18/19 07:51 Dose: 2.5 mg Documented by: Aspirin (Ecotrin Ectab) 81 mg PO DAILY [facility] Stop: 09/16/19 09:44 Last Admin: 08/18/19 07:52 Dose: 81 mg Documented by: Heparin Sodium (Porcine) (Heparin Sodium (Porcine)) 5,000 units SQ Q12 [facility] Stop: 09/15/19 20:59 Last Admin: 08/18/19 07:54 Dose: 5,000 units Documented by: Levothyroxine Sodium (Synthroid) 25 mcg PO DAILYBB [facility] Stop: 09/16/19 09:44 Last Admin: 08/18/19 06:31 Dose: 25 mcg Documented by: Lisinopril (Zestril) 20 mg PO DAILY [facility] Stop: 09/16/19 09:44 Last Admin: 08/18/19 07:51 Dose: 20 mg Documented by: Multivitamins/Minerals (Caltrate Plus) 1 tab PO BID [facility] Stop: 09/16/19 09:44 Last Admin: 08/18/19 07:52 Dose: 1 tab Documented by: Ondansetron HCl (Zofran) 4 mg IV Q6H PRN PRN Reason: Nausea Stop: 09/15/19 08:24 Oxycodone HCl (Roxicodone Immediate Rel) 5 mg PO Q4H PRN PRN Reason: Severe Pain (Scale Score 7-10) Stop: 08/31/19 09:34 Last Admin: 08/18/19 07:48 Dose: 5 mg Documented by: Polyethylene Glycol (Miralax Powder Packet) 17 gm PO DAILY [facility] Stop: 09/17/19 09:29 Last Admin: 08/18/19 09:50 Dose: 17 gm Documented by: Potassium Chloride (Klor-Con M10) 10 meq PO DAILY [facility] Stop: 09/16/19 09:44 Last Admin: 08/18/19 07:52 Dose: 10 meq Documented by: Sennosides (Senokot) 8.6 mg PO BID [facility] Stop: 09/17/19 20:59 Sodium Chloride (Sodium Chloride) 2 gm PO BID [facility] Stop: 09/16/19 09:44 Last Admin: 08/18/19 07:52 Dose: 2 gm Documented by: Tramadol HCl (Ultram) 50 mg PO Q6H PRN PRN Reason: Moderate Pain (Scale Score 5-6) Stop: 09/16/19 09:34 Last Admin: 08/18/19 06:33 Dose: 50 mg Documented by: PG Care Time/CCT Total # of Minutes Spent Total Time Spent with Patient: Total time spent is greater than 50% in coordination of care (as documented) at patient's floor/unit and/or counseling patient: Coding Level of Care Code 63904 Subseq Hosp Care Lvl 3 Diagnoses Ileus K56.7 Small bowel obstruction K56.609 Abdominal pain R10.9 Abdominal location: unspecified location Compression fracture HTN (hypertension) I10 Hypertension type: unspecified Paroxysmal atrial fibrillation I48.0 Syncope and collapse R55 Left hip pain M25.552 (1) Abdominal pain Abdominal location: unspecified location Qualified Code(s): R10.9 - Unspecified abdominal pain (2) HTN (hypertension) Hypertension type: unspecified Qualified Code(s): I10 - Essential (primary) hypertension
[2019-08-18] MEDS ORDERED: COUGH DROP (SUGAR FREE) LOZ 24 LOZ/1 BOX BUCCAL ONE (14:45)
[2019-08-18] MEDS: SENNA 8.6 MG TAB PO SCH (20:09)
[2019-08-19] MEDS: LEVOTHYROXINE SODIUM 25 MCG TABLET PO SCH (05:54)
[2019-08-19] MEDS: OXYCODONE HCL IR 5 MG TAB (IMMEDIATE RELEASE) PO PRN (08:20)
[2019-08-19] MEDS: POLYETHYLENE (MIRALAX) 17 GM PACK PO SCH (08:22)
[2019-08-19] MEDS: AMLODIPINE BESYLATE 5 MG TAB PO SCH (08:27)
[2019-08-19] MEDS: AMIODARONE 200 MG TAB PO SCH (08:27)
[2019-08-19] MEDS: POTASSIUM CHLORIDE 10 MEQ TABCR PO SCH (08:27)
[2019-08-19] MEDS: ASPIRIN 81 MG ECTAB PO SCH (08:27)
[2019-08-19] MEDS: CALCIUM 600MG + VIT D 400 IU TAB PO SCH ×2 (08:27→21:01)
[2019-08-19] MEDS: HEPARIN SOD 5,000 UNIT/0.5 ML VIAL SQ SCH ×2 (08:27→21:01)
[2019-08-19] MEDS: lisinopriL 20 MG TAB PO SCH (08:28)
[2019-08-19] MEDS: SENNA 8.6 MG TAB PO SCH ×2 (08:28→21:02)
[2019-08-19] MEDS: SODIUM CHLORIDE 1 GM TABLET PO SCH ×2 (08:28→21:02)
--- NOTE | 2019-08-19 10:02 | Hospitalist Progress Note ---
Date of Service August 19, 2019 Assessment & Plan (1) Ileus: Patient admitted with above problem. Will repeat KUB today: this showed constinue dilatation of her colon. Hold narcotics as patient was not taking this as an outpatient and the side effects of the narcotics are likely contributing to the problem. will likely need to place patient on NPO again. (Update: NPO placed for dinner) did have BM three times on the day of admission (two days ago) continue with Senokot BID, Miralax daily per general surgery Will also consult GI for possible colonic decompression. will also order enemas. (2) Small bowel obstruction: see above, more likely ileus at this point continues with hypoactive bowel sounds, no distension no nausea or vomiting (3) Abdominal pain: no pain for two days likely due to SBO/ileus (4) Compression fracture: old fractures but there is a new fx at T10 loss of 20% of height of vertebral body no pain on palpation of the spine, able to sit up independently without pain for now, recommend pain control, will order PT/OT no obvious role for surgery, will hold off for now on spine consult place on lidocaine patch. will hold narcotics. Checked PDMP, has not been on narcotics for years. PT/OT patient and family would like to go to [facility], she is medicare will ask CM to look into short term rehab prior to [facility] (5) HTN (hypertension): BP stable (6) Paroxysmal atrial fibrillation: in NSR continue Amiodarone noted to not be on anticoagulation, likely because she is in NSR (7) Syncope and collapse: occurred after moving her bowels monitor on tele for any arrhythmia (no issues) most likely vagal response after moving bowels, some dehydration no ischemic changes on initial EKG PT/OT consults when appropriate (8) Left hip pain: not present on admission left hip and pelvis x-ray with no fractures Updated family. Admission and Anticipated Discharge Date Admission Date: August 16, 2019 Subjective Patient is lying bed. Patient continues to have back pain in her lumbar spine. She reports she does not normally take pain medication as an outpatient. She states her last bowel movement was on Monday as per patient, Patient is aware today is MONDAY. Review of Systems Review of Systems: All systems reviewed & are unremarkable except as noted in HPI & below Physical Exam Physical Exam: Constitutional: WD/WN, vitals as above Eyes: PERRL, conjunctivae normal, anicteric sclerae ENMT: external ear and nose normal, oropharynx normal Neck: trachea midline, no thyromegaly Respiratory: normal respiratory effort, lungs clear to auscultation Cardiovascular: RRR, no murmur, no edema Gastrointestinal (Abdomen): Inspection/Auscultation: + hypoactive bowel sounds; abdomen not distended Percussion/Palpation: abdomen soft; abdomen nontender, no guarding, abdomen not rigid, no hernia and no ascites Musculoskeletal: no cyanosis or clubbing, extremities motor strength 5/5 Spine: no pain with cervical ROM, no thoracic spinal tenderness, no lumbar spinal tenderness and no paraspinal tenderness Skin: no rashes, warm and dry Neurologic: patellar DTR's 2+ bilat, sensation intact and PERRL, EOMI, accommodation nl, no face palsy, no dysarthria Psychiatric: AAOX3, euthymic affect Lymphatic: no cervical or axillary lymphadenopathy Results & Data ([facility]) Vital Signs (Past 12 Hours) Vital Signs Temp Pulse Resp BP BP Pulse Ox 08/19/19 07:31 37.5 C 66 20 172/64 H 91 08/19/19 00:01 36.8 C 62 16 135/65 91 PG Care Time/CCT Total # of Minutes Spent Total Time Spent with Patient: Total time spent is greater than 50% in coordination of care (as documented) at patient's floor/unit and/or counseling patient: Coding Level of Care Code 67820 Subseq Hosp Care Lvl 3 Diagnoses Ileus K56.7 Small bowel obstruction K56.609 Abdominal pain R10.9 Abdominal location: unspecified location Compression fracture HTN (hypertension) I10 Hypertension type: unspecified Paroxysmal atrial fibrillation I48.0 Syncope and collapse R55 Left hip pain M25.552 Time Spent (min) 35 (1) Abdominal pain Abdominal location: unspecified location Qualified Code(s): R10.9 - Unspecified abdominal pain (2) HTN (hypertension) Hypertension type: unspecified Qualified Code(s): I10 - Essential (primary) hypertension
--- NOTE | 2019-08-19 10:53 | XRay Report ---
XR KUB/Abdomen 1 view CLINICAL HISTORY: 89 years-old Female presenting with SBO. TECHNIQUE: Single supine view of the abdomen was obtained. COMPARISON: 08/18/[address] from 08/26/2019. FINDINGS: Gaseous distention of bowel, predominantly large bowel. Moderate stool burden, which appears predomin antly right-sided. No gross pneumoperitoneum. Allowing for bowel gas and stool, no calcifications to suggest nephrolithiasis. Severe multilevel degenerative changes. Kyphoplasty evident at T12. Scoliotic curvature of the thorac olumbar junction. 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 Lung bases clear. IMPRESSION: 1. Gaseous distended bowel. The presence of a small bowel obstruction is not well delineated on this radiograph. Continued follow-up advised. ACT 112: Negative or not required by law. Electronically signed by: Elieser Carrillo M.D. 08/19/2019 10:52 AM
[2019-08-19] MEDS: LIDOCAINE 5% 1 PATCH TD SCH (11:51)
[2019-08-19] MEDS ORDERED: SOD PHOSPHATE/SOD BIPHOSPHATE ENEMA 132 ML BTL PR STA (14:57)
--- NOTE | 2019-08-19 16:34 | Consultation Report ---
DATE OF CONSULTATION: 08/19/2019 GASTROINTESTINAL CONSULTATION NOTE REASON FOR EVALUATION: Abdominal distention. HISTORY OF PRESENT ILLNESS: The patient is an 89-year-old resident of the [facility] who was independently living. 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 The patient presents with nausea, abdominal pain and change in bowel habits with some loose stools and then decreased bowel movements. The patient became lightheaded and was having persistent nausea and vomited and then presented to the Emergency Room for further evaluation. PAST MEDICAL HISTORY: Remarkable for compression fractures in the back, paroxysmal atrial fibrillation, hypertension, appendectomy, back surgery. MEDICATIONS: Include amiodarone, baby aspirin, oxycodone, MiraLax and senna among others. ALLERGIES: None. FAMILY HISTORY: Positive for hypertension. SOCIAL HISTORY: The patient lives alone, does not smoke, does not drink. Lives at the [facility]. REVIEW OF SYSTEMS: Positive for abdominal pain, nausea, vomiting, diarrhea, fatigue. PHYSICAL EXAMINATION: GENERAL: The patient appears in no acute distress. VITAL SIGNS: Blood pressure is 180/76, pulse 60, O2 saturation 94%. ABDOMEN: Showed it to be distended. There is a right lower quadrant appendectomy scar. RECTAL: Showed a formed stool in the rectal vault, which was firm. LABORATORY DATA: Showed a white count of 17.57 on admission, hemoglobin and platelet count normal. Liver profile is normal. A CT scan showed severe arthritis in her back with a new compression fracture at T10 and some abdominal distention and a lot of stool in the left colon. IMPRESSION AND PLAN: The patient has distended intestine, probably from a combination of her compression fracture, opioid use and immobility. As an outpatient, she has been on MiraLax and senna, but still has solid stool in her rectum on physical exam today and her colon appears to be distended on plain film of the abdomen. At this point, I would recommend [employer] until the patient is able to move her bowels and rid herself off all the solid stool in the left colon, and hopefully, this will open things up for her to continue to have more regular bowel movements and decrease the distention in her abdomen. I do not believe that a colonic decompression at this time would be of benefit as there is still a significant amount of stool in the left colon. We will follow the patient during her hospital stay.
[2019-08-19] MEDS ORDERED: LIDOCAINE 5% 1 PATCH TD ONE (17:37)
[2019-08-19] MEDS: ACETAMINOPHEN 325 MG TAB PO PRN (18:08)
[2019-08-20] MEDS: ACETAMINOPHEN 325 MG TAB PO PRN ×4 (06:14→23:43)
[2019-08-20] MEDS: LEVOTHYROXINE SODIUM 25 MCG TABLET PO SCH (06:14)
[2019-08-20] MEDS: LIDOCAINE 5% 1 PATCH TD SCH (08:05)
[2019-08-20] MEDS: POLYETHYLENE (MIRALAX) 17 GM PACK PO SCH (08:17)
[2019-08-20] MEDS: AMIODARONE 200 MG TAB PO SCH (08:19)
[2019-08-20] MEDS: CALCIUM 600MG + VIT D 400 IU TAB PO SCH ×2 (08:19→20:11)
[2019-08-20] MEDS: POTASSIUM CHLORIDE 10 MEQ TABCR PO SCH (08:20)
[2019-08-20] MEDS: lisinopriL 20 MG TAB PO SCH (08:20)
[2019-08-20] MEDS: HEPARIN SOD 5,000 UNIT/0.5 ML VIAL SQ SCH ×2 (08:20→20:10)
[2019-08-20] MEDS: ASPIRIN 81 MG ECTAB PO SCH (08:20)
[2019-08-20] MEDS: AMLODIPINE BESYLATE 5 MG TAB PO SCH (08:20)
[2019-08-20] MEDS: SENNA 8.6 MG TAB PO SCH ×2 (08:20→20:11)
[2019-08-20] MEDS: SODIUM CHLORIDE 1 GM TABLET PO SCH ×2 (08:20→20:10)
[2019-08-20 08:43] LABS: Hematocrit (blood only) 35.3 % (37-47); Hemoglobin 12.3 g/dL (12.0-16.0); Mean Corpuscular Hemoglobin 30.4 pg (25-34); Mean Corpuscular Hgb Conc 34.8 g/dL (32-36); Mean Corpuscular Volume 87.4 fL (80-100); Mean Platelet Volume 8.9 fL (7.4-10.4); Platelet Count 268 K/uL (130-400); RDW Standard Deviation 48.1 fL (36.4-46.3); Red Blood Count 4.04 M/uL (4.2-5.4); White Blood Count 9.92 K/uL (4.8-10.8)
[2019-08-20] MEDS ORDERED: LIDOCAINE 5% 1 PATCH TD ONE (08:45)
[2019-08-20] MEDS ORDERED: SOD PHOSPHATE/SOD BIPHOSPHATE ENEMA 132 ML BTL PR PRN (09:00)
[2019-08-20 09:05] LABS: BUN Creatinine Ratio 13.8 (10-20); Calcium 8.5 mg/dl (8.5-10.1); Est GFR (African American) 90.3; Est GFR (Non-African American) 77.9; Phosphorus 2.4 mg/dl (2.5-4.9); Potassium 3.8 mmol/L (3.5-5.1)
[2019-08-20] MEDS ORDERED: POLYETHYLENE (MIRALAX) 17 GM PACK PO ONE (16:30)
--- NOTE | 2019-08-20 16:31 | Gastroenterology Progress Note ---
Date of Service August 20, 2019 Assessment & Plan (1) Abdominal distension: CT a/p on admit suggested SBO but f/u KUB more gaseous distension colon and stool burden right colon. Good bowel sounds does not make sense in SBO. Enemas not working. Give miralax bowel prep. lung nodules on CT a/p on admit---defer workup to hospitalist. Admission and Anticipated Discharge Date Admission Date: August 16, 2019 Subjective cc f/u abd pain HPI No abd pain. Per nurse and patient no bms yet with enemas. Physical Exam 2 Gastrointestinal (Abdomen): good bs, mildly distended and tympanitic. No guarding nor rebound Results & Data ([facility]) Vital Signs (Past 12 Hours) Vital Signs Temp Pulse Resp BP Pulse Ox 08/20/19 16:17 36.7 C 55 L 18 166/76 H 94 08/20/19 07:21 37.1 C 58 L 18 155/62 H 94
--- NOTE | 2019-08-20 21:53 | Hospitalist Progress Note ---
Date of Service August 20, 2019 Assessment & Plan (1) Ileus: Patient admitted with above problem. Repeat KUB yesterday: showed continue dilatation of her colon. Will continue to hold narcotics as patient was not taking this as an outpatient and the side effects of the narcotics are likely contributing to the problem. will continue NPO will continue enemas as per GI. (2) Small bowel obstruction: see above, more likely ileus at this point continues with hypoactive bowel sounds, no distension no nausea or vomiting (3) Abdominal pain: no pain for two days likely due to SBO/ileus (4) Compression fracture: old fractures but there is a new fx at T10 loss of 20% of height of vertebral body no pain on palpation of the spine, able to sit up independently without pain for now, recommend pain control, will order PT/OT no obvious role for surgery, will hold off for now on spine consult placed on lidocaine patch. will place a second patch to help with her pain. will hold narcotics. Checked PDMP, has not been on narcotics for years. PT/OT patient and family would like to go to [facility], she is medicare will ask CM to look into short term rehab [facility] (5) HTN (hypertension): BP stable (6) Paroxysmal atrial fibrillation: in NSR continue Amiodarone noted to not be on anticoagulation, likely because she is in NSR (7) Syncope and collapse: occurred after moving her bowels monitor on tele for any arrhythmia (no issues) most likely vagal response after moving bowels, some dehydration no ischemic changes on initial EKG PT/OT consults when appropriate (8) Left hip pain: not present on admission left hip and pelvis x-ray with no fractures Updated family. Admission and Anticipated Discharge Date Admission Date: August 16, 2019 Subjective 89 yo female reports having some back pain today. She denies any bowel movements. She denies any abdominal pain either. Patient denies fever, chills, nausea or vomiting. Review of Systems Review of Systems: All systems reviewed & are unremarkable except as noted in HPI & below Physical Exam Physical Exam: Constitutional: WD/WN, vitals as above Eyes: PERRL, conjunctivae normal, anicteric sclerae ENMT: external ear and nose normal, oropharynx normal Neck: trachea midline, no thyromegaly Respiratory: normal respiratory effort, lungs clear to auscultation Cardiovascular: RRR, no murmur, no edema Gastrointestinal (Abdomen): Inspection/Auscultation: + hypoactive bowel sounds; abdomen not distended Percussion/Palpation: abdomen soft; abdomen nontender, no guarding, abdomen not rigid, no hernia and no ascites Musculoskeletal: no cyanosis or clubbing, extremities motor strength 5/5 Spine: no pain with cervical ROM, no thoracic spinal tenderness, no lumbar spinal tenderness and no paraspinal tenderness Skin: no rashes, warm and dry Neurologic: patellar DTR's 2+ bilat, sensation intact and PERRL, EOMI, acco mmodation nl, no face palsy, no dysarthria Psychiatric: AAOX3, euthymic affect Lymphatic: no cervical or axillary lymphadenopathy Results & Data ([facility]) Vital Signs (Past 12 Hours) Vital Signs Temp Pulse Resp BP Pulse Ox 08/20/19 19:55 36.3 C L 64 18 176/70 H 92 08/20/19 16:17 36.7 C 55 L 18 166/76 H 94 PG Care Time/CCT Total # of Minutes Spent Total Time Spent with Patient: Total time spent is greater than 50% in coordination of care (as documented) at patient's floor/unit and/or counseling patient: Coding Level of Care Code 74670 Subseq Hosp Care Lvl 3 Diagnoses Ileus K56.7 Small bowel obstruction K56.609 Abdominal pain R10.9 Abdominal location: unspecified location Compression fracture HTN (hypertension) I10 Hypertension type: unspecified Paroxysmal atrial fibrillation I48.0 Syncope and collapse R55 Left hip pain M25.552 Time Spent (min) 35 (1) Abdominal pain Abdominal location: unspecified location Qualified Code(s): R10.9 - Unspecified abdominal pain (2) HTN (hypertension) Hypertension type: unspecified Qualified Code(s): I10 - Essential (primary) hypertension
[2019-08-21] MEDS: ACETAMINOPHEN 325 MG TAB PO PRN ×2 (06:02→20:05)
[2019-08-21] MEDS: LEVOTHYROXINE SODIUM 25 MCG TABLET PO SCH (06:02)
[2019-08-21] MEDS: POLYETHYLENE (MIRALAX) 17 GM PACK PO SCH (09:34)
[2019-08-21] MEDS: SENNA 8.6 MG TAB PO SCH ×2 (09:34→20:06)
[2019-08-21] MEDS: LIDOCAINE 5% 1 PATCH TD SCH (09:34)
[2019-08-21 09:39] LABS: Basophils # (auto) 0.04 K/uL (0-0.2); Basophils % (auto) 0.5 %; Eosinophils # (auto) 0.17 K/uL (0-0.5); Hematocrit (blood only) 36.9 % (37-47); Hemoglobin 12.8 g/dL (12.0-16.0); Immature Granulocytes # (auto) 0.03 K/uL (0.00-0.02); Immature Granulocytes % (auto) 0.3 %; Lymphocytes # (auto) 1.47 K/uL (1.2-3.4); Lymphocytes % (auto) 17.1 %; Mean Corpuscular Hemoglobin 30.2 pg (25-34); Mean Corpuscular Hgb Conc 34.7 g/dL (32-36); Monocytes # (auto) 0.82 K/uL (0.11-0.59); Monocytes % (auto) 9.5 %; Neutrophils # (auto) 6.08 K/uL (1.4-6.5); Neutrophils % (auto) 70.6 %; Platelet Count 305 K/uL (130-400); RDW Coefficient of Variation 14.9 % (11.5-14.5); RDW Standard Deviation 47.5 fL (36.4-46.3); Red Blood Count 4.24 M/uL (4.2-5.4); White Blood Count 8.61 K/uL (4.8-10.8)
[2019-08-21] MEDS ORDERED: LACTATED RINGER'S 1,000 ML IV SCH (09:45)
[2019-08-21] MEDS ORDERED: POLYETHYLENE (MIRALAX) 17 GM PACK PO ONE (10:01)
[2019-08-21 10:08] LABS: BUN Creatinine Ratio 12.3 (10-20); Calcium 8.7 mg/dl (8.5-10.1); Est GFR (African American) 93.7; Est GFR (Non-African American) 80.8; Potassium 3.7 mmol/L (3.5-5.1)
[2019-08-21 10:11] LABS: Albumin Globulin Ratio 0.7 (0.9-2); Bilirubin,Total 0.6 mg/dl (0.2-1); Globulin 4.5 gm/dl (2.5-4.0); Phosphorus 2.1 mg/dl (2.5-4.9); Total Protein 7.5 gm/dl (6.4-8.2)
[2019-08-21] MEDS: CALCIUM 600MG + VIT D 400 IU TAB PO SCH ×2 (10:13→20:06)
[2019-08-21] MEDS: ASPIRIN 81 MG ECTAB PO SCH (10:13)
[2019-08-21] MEDS: AMIODARONE 200 MG TAB PO SCH (10:13)
[2019-08-21] MEDS: AMLODIPINE BESYLATE 5 MG TAB PO SCH (10:14)
[2019-08-21] MEDS: POTASSIUM CHLORIDE 10 MEQ TABCR PO SCH (10:14)
[2019-08-21] MEDS: HEPARIN SOD 5,000 UNIT/0.5 ML VIAL SQ SCH ×2 (10:14→20:08)
[2019-08-21] MEDS: lisinopriL 20 MG TAB PO SCH (10:15)
[2019-08-21] MEDS: SODIUM CHLORIDE 1 GM TABLET PO SCH ×2 (10:15→20:07)
--- NOTE | 2019-08-21 10:51 | XRay Report ---
KUB CLINICAL HISTORY: Constipation. FINDINGS: An AP supine abdominal radiograph is compared to study dated 08/19/2019 and correlated with abdominal CT dated 08/16/2019. There is mild gaseous distention of the bowel loops with no radiographic evidence of high-grade obstruction. No significant fecal retention is identified. No evidence of int raperitoneal free air is seen on this supine image. There are no abnormal abdominal calcifications. V ascular calcifications are noted in the pelvis. The skeletal structures are osteopenic. There is adva nced lumbosacral spondylosis as well as scoliosis. A compression deformity of evidence of previous ve rtebroplasty is noted in the lower thoracic spine. There is chronic posttraumatic deformity of the [place] pelvis. IMPRESSION: There is mild gaseous distention of the bowel loops with no radiographic evidence of high -grade obstruction. Electronically signed by: Dayton Aragon M.D. 08/21/2019 10:50 AM
[2019-08-21] MEDS ORDERED: KETOROLAC TROMETHAMINE 15 MG/ML VIAL IV ONE (11:20)
[2019-08-21] MEDS ORDERED: POTASSIUM PHOS 3 MMOL/1 ML INFUSION IV STA (11:20)
[2019-08-21] MEDS ORDERED: HydrALAZINE HCL 20 MG/ML VIAL IV ONE (11:25)
[2019-08-21] MEDS ORDERED: POTASSIUM PHOSPHATE 21 MMOL in SODIUM CHLORIDE 0.9% 500 ML IV ONE (11:30)
[2019-08-21] MEDS: CALCITONIN SALMON NA 200 IU/AC 3.7 ML BTL SCH (13:22)
--- NOTE | 2019-08-21 15:38 | Progress Note ---
DATE: 08/21/2019 SUBJECTIVE: The patient has been given extra MiraLax and has been moving her bowels. She has passed some solid stool as well as liquid stool and her abdomen is less tender and less distended. Her blood pressure did go up and is being treated. OBJECTIVE: Her abdomen is much softer. There is no tenderness. No mass, no palpable stool. White count is 8.6, hemoglobin 12.8. IMPRESSION: The patient had abdominal distention and constipation which was multifactorial. She is starting to improve and her back is feeling better, so she is taking less opiate pain medication which will help prevent recurrent constipation. For now, I plan on keeping her on MiraLax once a day and advancing her diet to a low-fiber diet.
--- NOTE | 2019-08-21 23:00 | Hospitalist Progress Note ---
Date of Service August 21, 2019 Assessment & Plan (1) Ileus: Patient admitted with above problem. Repeat KUB : shows improvement of the dilatation of her colon. Will continue to hold narcotics as patient was not taking this as an outpatient and the side effects of the narcotics are likely contributing to the problem. will restart a full liquid diet for the moment. (2) Small bowel obstruction: see above, more likely ileus at this point as noted above. (3) Abdominal pain: no pain likely due to SBO/ileus (4) Compression fracture: Acute T10 compression fracture is noted. loss of 20% of height of vertebral body pain on the paraspinal muscles mainly on the left side. She has been controlled with lidocaine patches in the past. However, she is now having more pain; May be attributed to her being mobile. Will contiue to hold off narcotics given her main issue of constipation. will consult ortho spine for input. Perhaps may benefit from trigger point injections. Patient will be placed on calcitonin for the short term to see if this helps with her pain. placed on lidocaine patch. will place a second patch to help with her pain. will hold narcotics. Checked PDMP, has not been on narcotics for years. PT/OT patient and family would like to go to [facility], she is medicare will ask CM to look into short term rehab prior to [facility] (5) HTN (hypertension): BP has been elevated. may be attributed to her pain. will monitor. placed on hydralazine PRN. (6) Paroxysmal atrial fibrillation: in NSR continue Amiodarone noted to not be on anticoagulation, likely because she is in NSR (7) Syncope and collapse: occurred after moving her bowels monitor on tele for any arrhythmia (no issues) most likely vagal response after moving bowels, some dehydration no ischemic changes on initial EKG PT/OT consults when appropriate (8) Left hip pain: not present on admission left hip and pelvis x-ray with no fractures Updated family. Admission and Anticipated Discharge Date Admission Date: August 16, 2019 Subjective Patient reports having worsening of her back pain today. It is currently a 6 out of 10. Patient states though she has been ambulating more and has had multiple bowel movements today and i the evening. Currently her bowel movements have been loose. Her 2 daughters are at bedside and all of there questions were anaswered. Review of Systems Review of Systems: All systems reviewed & are unremarkable except as noted in HPI & below Physical Exam Physical Exam: Constitutional: WD/WN, vitals as above Eyes: PERRL, conjunctivae normal, anicteric sclerae ENMT: external ear and nose normal, oropharynx normal Neck: trachea midline, no thyromegaly Respiratory: normal respiratory effort, lungs clear to auscultation Cardiovascular: RRR, no murmur, no edema Gastrointestinal (Abdomen): Inspection/Auscultation: + hyperactive bowel sounds; abdomen not distended Percussion/Palpation: abdomen soft; abdomen nontender, no guarding, abdomen not rigid, no hernia and no ascites Musculoskeletal: no cyanosis or clubbing, extremities motor strength 5/5 Spine: no pain with cervical ROM, no thoracic spinal tenderness, no lumbar spinal tenderness and no paraspinal tenderness Skin: no rashes, warm and dry Neurologic: patellar DTR's 2+ bilat, sensation intact and PERRL, EOMI, accommodation nl, no face palsy, no dysarthria Psychiatric: AAOX3, euthymic affect Lymphatic: no cervical or axillary lymphadenopathy Results & Data ([facility]) Vital Signs (Past 12 Hours) Vital Signs Temp Pulse Resp BP BP Pulse Ox 08/21/19 14:49 36.5 C 63 19 178/63 H 91 08/21/19 12:46 150/64 H 08/21/19 12:00 196/85 H 08/21/19 11:17 36.3 C L 64 20 209/64 H 206/70 H 96 PG Care Time/CCT Total # of Minutes Spent Total Time Spent with Patient: Total time spent is greater than 50% in coordination of care (as documented) at patient's floor/unit and/or counseling patient: Coding Level of Care Code 89013 Subseq Hosp Care Lvl 3 Diagnoses Ileus K56.7 Small bowel obstruction K56.609 Abdominal pain R10.9 Abdominal location: unspecified location Compression fracture HTN (hypertension) I10 Hypertension type: unspecified Paroxysmal atrial fibrillation I48.0 Syncope and collapse R55 Left hip pain M25.552 Time Spent (min) 45 (1) Abdominal pain Abdominal location: unspecified location Qualified Code(s): R10.9 - Unspecified abdominal pain (2) HTN (hypertension) Hypertension type: unspecified Qualified Code(s): I10 - Essential (primary) hypertension
[2019-08-22] MEDS: LEVOTHYROXINE SODIUM 25 MCG TABLET PO SCH (06:06)
[2019-08-22] MEDS: SENNA 8.6 MG TAB PO SCH (09:11)
[2019-08-22] MEDS: LIDOCAINE 5% 1 PATCH TD SCH (09:12)
[2019-08-22] MEDS: POTASSIUM CHLORIDE 10 MEQ TABCR PO SCH (09:14)
[2019-08-22] MEDS: SODIUM CHLORIDE 1 GM TABLET PO SCH (09:14)
[2019-08-22] MEDS: AMLODIPINE BESYLATE 5 MG TAB PO SCH (09:14)
[2019-08-22] MEDS: CALCIUM 600MG + VIT D 400 IU TAB PO SCH (09:15)
[2019-08-22] MEDS: AMIODARONE 200 MG TAB PO SCH (09:15)
[2019-08-22] MEDS: lisinopriL 20 MG TAB PO SCH (09:15)
[2019-08-22] MEDS: ASPIRIN 81 MG ECTAB PO SCH (09:15)
[2019-08-22] MEDS: POLYETHYLENE (MIRALAX) 17 GM PACK PO SCH (09:16)
[2019-08-22] MEDS: HEPARIN SOD 5,000 UNIT/0.5 ML VIAL SQ SCH (09:16)
[2019-08-22] MEDS: CALCITONIN SALMON NA 200 IU/AC 3.7 ML BTL SCH (09:16)
[2019-08-22] MEDS: ACETAMINOPHEN 325 MG TAB PO PRN (09:58)
--- NOTE | 2019-08-22 11:12 | Orthopedic Consultation ---
Date of Consultation August 22, 2019 Assessment & Plan (1) Compression fracture: At this time her compression fractures are less likely healed. I recommend that she not lift more than 5 to 10 pounds but I would not recommend a brace or any surgery at this time. She is okay for discharge from orthopedic standpoint. Present on Admission?: Yes History of Present Illness Reason for Consultation: Back pain Attending Physician: Randall Soto History of Present Illness This is a very pleasant 89-year-old female that had an episode of pretty significant lumbar back pain yesterday. She has had some chronic moderate discomfort over the past several days but yesterday it was markedly severe. She denies any specific trauma fall or event. She was prior to that time ambulating the halls without difficulty. This morning she is accompanied by her daughters. She is already been up out of bed and been to the bathroom and wash herself without difficulty. She denies any significant discomfort at all today. She feet states she feels excellent. In fact she would like [facility]. Numbness or tingling to lower extremities per denies any lower extremity weakness. Allergies Allergy/AdvReac Type Severity Reaction Status Date / Time No Known Allergies Allergy Verified 08/21/17 16:30 Home Medications Home Medications Medication Instructions Recorded Confirmed Type acetaminophen [Tylenol] 325 mg PO Q4H PRN 08/16/19 08/16/19 History amiodarone 200 mg PO DAILY 08/16/19 08/16/19 History amlodipine 2.5 mg PO DAILY 08/16/19 08/16/19 History aspirin 81 mg PO DAILY 08/16/19 08/16/19 History calcium carbonate-vitamin D3 1 cap PO BID 08/16/19 08/16/19 History [Calcium 600 + D(3)] furosemide [Lasix] 20 mg PO DAILY 08/16/19 08/16/19 History levothyroxine 25 mcg PO DAILY 08/16/19 08/16/19 History lisinopril 20 mg PO DAILY 08/16/19 08/16/19 History oxycodone 5 mg PO Q4H PRN 08/16/19 08/16/19 History polyethylene glycol 3350 [Miralax] 17 g PO DAILY 08/16/19 08/16/19 History potassium chloride 10 meq PO DAILY 08/16/19 08/16/19 History sennosides [senna] 8.6 mg PO BID 08/16/19 08/16/19 History sodium chloride 2,000 mg PO BID 08/16/19 08/16/19 History tramadol [Ultram] 50 mg PO Q6H PRN 08/16/19 08/16/19 History Patient History Medical History (Updated 08/20/19 @ 16:30 by Walter Stanley) HTN (hypertension) (Acute) Paroxysmal atrial fibrillation Pelvic fracture (Acute) Surgical History History of appendectomy History of back surgery Family History (Updated 08/16/19 @ 12:25 by Eduardo Gonzalez DO) Other Hypertension No significant family history Social History (Updated 08/16/19 @ 03:52 by Tristin Daugherty) Preferred Language: Kiswahili Communication Ability: Effective Concrete Floater Required: No Beliefs That Will Affect Care: None marital status: / Current Living Situation: Alone Current Living Situation Comment: [facility] Feels Safe at Home: Yes Smoking Status: Never smoker Hx Alcohol Use: No Hx Substance Use: No Physical Exam Physical Exam: On exam she steps up without difficulty. She has no pain to palpation or percussion throughout the thoracolumbar spine. She has good strength testing lower extremities. Results & Data ([facility]) Vital Signs (Past 12 Hours) Vital Signs Temp Pulse Resp BP Pulse Ox 08/22/19 07:17 36.6 C 63 18 179/79 H 95
[2019-08-22] MEDS ORDERED: POT PHOSPHATE MONOBASIC W/ SOD TAB PO STA (12:36)
--- NOTE | 2019-08-28 00:09 | Discharge Summary ---
Date of Service August 22, 2019 Admission HPI Per Admitting Provider 89 yo female with history of atrial fibrillation, HTN, compression fractures, presented to the ED early this morning due to worsening GI symptoms. The patient reports that at baseline she is independent, lives by herself at [facility]. She was in her usual state of good health until last night. She was visiting with some honors students from [facility] and she had a hot dog and chips. An hour later she felt nauseated and had some abdominal pain. She then had a bowel movement that was loose which was abnormal for her. The abdominal pain got worse and she developed some nausea. She had to have another bowel movement around 1am and after she moved her bowels she stood up to walk to bedroom and she must have had a syncopal episode because the next thing she knew she was on the floor with her walker laying on top of her. She called for help and staff at [facility] alerted EMS. She says that she did not notice any pain in her back. She was brought to the ED where her nausea persisted and she vom ited once. She reports that she moved her bowels again in the ED, loose. CT in the ED showed a low grade small bowel obstruction. CT of the thoracic and lumbar spine showed acute compression fracture of T10, prior compression fracture with kyphoplasty at T12. CT head normal. CXR with mild bibasilar opacities, likely atelectasis. CT cervical spine negative for fractures. EKG showed NSR in the 60's no ischemia. Labs showed leukocytosis of 17k. Cr stable and electrolytes normal. Normal LFT. NGT was placed in the ED for the bowel obstruction. Principal Diagnosis SBO Discharge Exam Constitutional: WD/WN, vitals as above Eyes: PERRL, conjunctivae normal, anicteric sclerae ENMT: external ear and nose normal, oropharynx normal Neck: trachea midline, no thyromegaly Respiratory: normal respiratory effort, lungs clear to auscultation Cardiovascular: RRR, no murmur, no edema Gastrointestinal (Abdomen): Inspection/Auscultation: + hyperactive bowel sounds; abdomen not distended Percussion/Palpation: abdomen soft; abdomen nontender, no guarding, abdomen not rigid, no hernia and no ascites Musculoskeletal: no cyanosis or clubbing, extremities motor strength 5/5 Spine: no pain with cervical ROM, no thoracic spinal tenderness, no lumbar spinal tenderness and no paraspinal tenderness Skin: no rashes, warm and dry Neurologic: patellar DTR's 2+ bilat, sensation intact and PERRL, EOMI, accommodation nl, no face palsy, no dysarthria Psychiatric: AAOX3, euthymic affect Lymphatic: no cervical or axillary lymphadenopathy Discharge Data Allergies Allergy/AdvReac Type Severity Reaction Status Date / Time No Known Allergies Allergy Verified 08/21/17 16:30 Consultations 08/16/19 07:08 ED Decision to Admit Stat 08/16/19 08:25 Consult Case Management - Discharge Planning Routine 08/16/19 08:49 Consult General Surgery Routine 08/19/19 14:25 Consult Gastroenterology Routine 08/21/19 12:24 Consult Orthopedic Surgery Routine 08/22/19 12:32 Consult Pain Management Routine Ordered Studies 08/16/19 03:42 CT abd pelvis IV con only Urgent CT cervical spine wo con Urgent CT lumbar spine wo con Urgent CT thoracic spine wo con Urgent 08/16/19 04:13 CT head/brain wo con Urgent Hospital Course (1) Ileus: Patient admitted with above problem. Repeat KUB : shows improvement of the dilatation of her colon. Will continue to hold narcotics as patient was not taking this as an outpatient and the side effects of the narcotics are likely contributing to the problem. tolreated full liquid diet; will transition to low residual diet. Patient can be discharged (2) Small bowel obstruction: see above, more likely ileus at this point as noted above. (3) Abdominal pain: no pain likely due to SBO/ileus (4) Compression fracture: Acute T10 compression fracture is noted. loss of 20% of height of vertebral body pain on the paraspinal muscles mainly on the left side. She has been controlled with lidocaine patches in the past. However, she is now having more pain; May be attributed to her being mobile. Will contiue to hold off narcotics given her main issue of constipation. will consult ortho spine for input. Perhaps may benefit from trigger point injections. Patient will be placed on calcitonin for the short term to see if this helps with her pain. placed on 2 lidocaine patch. will hold narcotics. Checked PDMP, has not been on narcotics for years. Placed on intranasal cacitonin for 4 weeks. will need to closely monitor he r phos and calcium, potassium PT/OT patient and family would like to go to [facility], she is medicare will ask CM to look into short term rehab prior to going to [facility] inde pendent living (5) HTN (hypertension): BP has been elevated. may be attributed to her pain. (6) Paroxysmal atrial fibrillation: in NSR continue Amiodarone noted to not be on anticoagulation, likely because she is in NSR (7) Syncope and collapse: occurred after moving her bowels monitor on tele for any arrhythmia (no issues) most likely vagal response after moving bowels, some dehydration no ischemic changes on initial EKG PT/OT consults when appropriate (8) Left hip pain: not present on admission left hip and pelvis x-ray with no fractures Updated family. Total Time Total Time Spent Total Time Spent (In Minutes): 35 Total Time Includes: Examination of the Patient, Discharge Planning and Medication Reconciliation Discharge Plan Discharge Items Patient Disposition: Transfer Nursing Home Fac Reason For Visit: SMALL BOWEL OBSTRUCTION Discharge Diagnosis: Small Bowel Obstruction Activity: Resume your previous activity Non-emergency contact: Primary Care Provider Call non-emergency contact if: you have any medication questions Follow-up/Referrals: [facility] [Primary Care Provider] - Diet: Low Fiber Addtl Attending Provider Instructions: You have been hospitalized for an acute medical problem. During your stay at [facility], we have made an effort to correct the problem that brought you to the hospital while keeping you as comfortable as possible. Medications were used to bring your condition under control and your discharge instructions will include directions for any medications you should take after leaving the hospital. Please make sure you see your Primary Care Provider as part of your follow up plan. Will recommend followup with PCP in 1-2 weeks. Followup with Cherelle Lundberg in 1-4 weeks for pain clinic appointment. Check weekly labs to assess BMP, and calcium: mainly to look for calcium levels and phosphorus levels and potassium levels. Check first test on Monday. Will recommend followup with Pain clinic within 1-4 weeks. Use lidocaine patches for back pain both on left side lower thoracic and lumbar spine.. Pending Studies at Discharge: No Stand-Alone Forms: My [facility] [employer], Smoking Cessation Skilled Items Lines: None Urinary Catheter: No Medications and DC Order Prescriptions: New acetaminophen [Mapap (acetaminophen)] 325 mg Tablet 650 mg PO Q6H PRN (Reason: pain) Qty: 30 RF: 0 calcitonin (salmon) 200 unit/actuation [place],Non-Aerosol 1 spray NA DAILY Qty: 28 RF: 0 lidocaine 5 % Adhesive Patch,Medicated 2 patch transdermal QAM Qty: 60 RF: 0 Phospha 250 Neutral 250 mg tablet 1 tab PO BID Qty: 60 RF: 0 Continued lisinopril 20 mg Tablet 20 mg PO DAILY RF: 0 furosemide [Lasix] 20 mg Tablet 20 mg PO DAILY RF: 0 sodium chloride 1 gram Tablet 2,000 mg PO BID RF: 0 amlodipine 2.5 mg Tablet 2.5 mg PO DAILY RF: 0 levothyroxine 25 mcg Tablet 25 mcg PO DAILY RF: 0 amiodarone 200 mg Tablet 200 mg PO DAILY RF: 0 aspirin 81 mg Tablet,Delayed Release (Dr/Ec) 81 mg PO DAILY RF: 0 Calcium 600 + D(3) 600 mg calcium- 200 unit Capsule 1 cap PO BID RF: 0 potassium chloride 10 mEq Tablet Extended Release 10 meq PO DAILY RF: 0 sennosides [senna] 8.6 mg Tablet 8.6 mg PO BID RF: 0 polyethylene glycol 3350 [Miralax] 17 gram Powder In Packet 17 g PO DAILY RF: 0 Discontinued acetaminophen [Tylenol] 325 mg Tablet 325 mg PO Q4H PRN (Reason: pain/fever) RF: 0 oxycodone 5 mg Tablet 5 mg PO Q4H PRN (Reason: Severe Pain (Scale Score 7-10)) RF: 0 tramadol [Ultram] 50 mg Tablet 50 mg PO Q6H PRN (Reason: Moderate Pain (Scale Score 5-6)) RF: 0 Discharge Orders: Discharge Order (Routine); Ordered 08/22/19 Ordered By: Randall Soto Admission Data Admit Date/Time: 08/16/19 07:17 Attending Provider: Randall Soto Admit Provider: Eduardo Gonzalez Primary Care Provider: Bay[facility] Adalid Domingo Other Providers: Eduardo Gonzalez ; Piter Norton ; Jimenez Blount ; Robert Cheek ; Cherelle Lundberg Other Interventions: Discharge Summary Assessment (RN) Last Done: 08/22/19 12:42 DC Date/Time DO NOT enter until pt leaves facility: 08/22/19 13:30 Coding Level of Care Code D/C Day Management >30 mins Diagnoses Ileus K56.7 Small bowel obstruction K56.609 Abdominal pain R10.9 Abdominal location: unspecified location Compression fracture HTN (hypertension) I10 Hypertension type: unspecified Paroxysmal atrial fibrillation I48.0 Syncope and collapse R55 Left hip pain M25.552 Time Spent (min) 35
== END 2019-08-22 13:30 | DRG 543 ==
LOC: ED 03:33 → SUATTDRO 07:17 → 2N 07:17 → 4W 08-21 18:43